=== PATIENT | male | born 1945 | race Caucasian/White ===

== ENCOUNTER 2024-04-08 14:54 | Inpatient (IN) | payer MEDICARE, SELFPAY ==
[2024-04-08] VITALS (14 sets, daily range): BP systolic 150–197; BP diastolic 75–136; PULSE 86–104; TEMP 36.7–36.9; O2SAT 90–96; BMI 23.0; BMI 22.7
--- NOTE | 2024-04-08 15:19 | ED_ITS ---
<Statement entered by Jesus Perez MD - 04/09/24 12:29> Chart was sent to my inbox for administrative and group management purposes. I was the attending physicians working during the patients hospital course. The patient was seen and managed independently by the MLP. I did not personally see or evaluate this patient, nor was I involved in the patient medical decision making process or plans of care. Pt was dispositioned by the MLP with complete independence. I was available for consultation should the MLP request during this patients ED stay. This documentation has been reviewed and approved. HPI HPI - General Adult General Chief complaint: Fall Stated complaint: GENERAL WEAKNESS Time Seen by Provider: 04/08/24 14:58 Source: patient Mode of arrival: walk-in Limitations: no limitations History of Present Illness HPI narrative: Patient is a 78-year-old male with history of Parkinson's, alcoholism who presents to the emergency department accompanied by mobile crisis representatives for evaluation of right-sided rib pain after a fall last night. Mobile crisis states that the patient recently got out of [facility] in [place] for alcohol detox, just before , and has been living out of a hotel that they set him up with. They provide him with food. He has issues with mental illness, bipolar disorder. He had a behavioral health appointment this morning but when he complained of rib pain from the fall last night, they brought him to this emergency department. Patient has been having an increase in falls. He states yesterday he was outside smoking a cigarette, he does not know why he fell. He is unsure of a loss of consciousness. He sustained an abrasion to the right denominational. He does have some neck pain. He reports most of his pain to the right lateral ribs. He also has associated bilateral hip and pelvis pain. He takes an aspirin daily with no other anticoagulation. He states he had 5 cups of coffee earlier today, but has not had anything to eat. He states he last had alcohol last night. He ambulates with a walker normally, he has been having difficulty ambulating even with a walker recently. Related Data Home Medications ?Medication ?Instructions ?Recorded ?Confirmed albuterol sulfate 90 mcg/actuation 1 inh inhalation Q4H PRN shortness 04/08/24 04/08/24 aerosol inhaler of breath or wheezing aspirin 81 mg chewable tablet 1 tab PO DAILY 04/08/24 04/08/24 atorvastatin 40 mg tablet 10 mg PO DAILY 04/08/24 04/08/24 escitalopram oxalate 20 mg tablet 20 mg PO DAILY 04/08/24 04/08/24 furosemide 40 mg tablet 40 mg PO DAILY 04/08/24 04/08/24 hydroxyzine HCl 25 mg tablet 25 mg PO DAILY PRN itching 04/08/24 04/08/24 lisinopril 10 mg tablet 10 mg PO DAILY 04/08/24 04/08/24 naproxen 500 mg tablet,delayed 500 mg PO Q12H 04/08/24 04/08/24 release (EC-Naprosyn) tizanidine 4 mg capsule 4 mg PO BID PRN muscle spasticity 04/08/24 04/08/24 trazodone 100 mg tablet 100 mg PO DAILY 04/08/24 04/08/24 Allergies Allergy/AdvReac Type Severity Reaction Status Date / Time doxycycline (From Vibramycin) AdvReac Severe Confusion Verified 04/08/24 15:35 methylprednisolone (From AdvReac Severe Confusion Verified 04/08/24 15:35 Medrol) oxycodone (From OxyContin) AdvReac Severe Confusion Verified 04/08/24 15:35 procaine (From Novocain) AdvReac Severe pass out Verified 04/08/24 15:35 nitroglycerin AdvReac Mild Rash Verified 04/08/24 15:35 Opioid HPI Opioid Management Most Recent Opioid Data: Ur Phencyclidine Scrn Negative (NEGATIVE) 04/08/24 17:15 12/01/22 Review of Systems ROS Constitutional Denies: fever or chills Ears, nose, mouth, and throat Denies: throat pain or nasal discharge Cardiovascular Denies: chest pain Respiratory Denies: shortness of breath or cough Gastrointestinal Denies: abdominal pain, nausea or vomiting Musculoskeletal Reports: neck pain and extremity pain; Denies: back pain Integumentary/Breast Denies: rash Neurological Denies: numbness in extremities or weakness in extremities Hematologic/Lymphatic Denies: easy bruising or easy bleeding [facility] Medical History (Updated 04/08/24 @ 19:24 by INDERJIT Atwood) CHF (congestive heart failure) ?I50.9 - Heart failure, unspecified (ICD-10) COPD (chronic obstructive pulmonary disease) ?J44.9 - Chronic obstructive pulmonary disease, unspecified (ICD-10) Chronic insomnia ?F51.04 - Psychophysiologic insomnia (ICD-10) Anxiety ?F41.9 - Anxiety disorder, unspecified (ICD-10) Recurrent depression ?F33.9 - Major depressive disorder, recurrent, unspecified (ICD-10) Chronic bipolar disorder ?F31.9 - Bipolar disorder, unspecified (ICD-10) Social History Little interest or pleasure in doing things: not at all Feeling down, depressed, or hopeless: not at all Exam Narrative Exam Narrative: Gen.: Awake, alert, in no distress Head: Normocephalic, abrasion noted to the right denominational ENT: Moist mucous membranes Respiratory: No respiratory distress, lungs clear bilaterally; diffuse tenderness of the right lateral chest wall, no crepitance or ecchymosis Cardio: Regular rate and rhythm Gastrointestinal: Abdomen is soft, nondistended and nontender to palpation, diffuse tenderness of the bilateral hips and pelvis Extremities: Minimal tenderness of the bilateral lower extremities with no bony tenderness or obvious deformity Psych: Normal mood and affect Neuro: No focal neuro deficit Skin: Warm, dry, intact Constitutional Vital Signs, click to edit/add: Last Vital Signs Temp 98.1 F 04/08/24 15:00 Pulse 91 H 04/08/24 16:10 Resp 16 04/08/24 16:10 BP 159/90 H 04/08/24 16:00 Pulse Ox 93 L 04/08/24 16:10 O2 Del Method Room Air 04/08/24 15:00 Course Vital Signs Vital signs: Vital Signs Temperature 98.1 F 04/08/24 15:00 Pulse Rate 104 H 04/08/24 15:00 Respiratory Rate 18 04/08/24 15:00 Blood Pressure 188/88 H 04/08/24 15:00 Pulse Oximetry 96 04/08/24 15:00 Oxygen Delivery Method Room Air 04/08/24 15:00 Temperature 98.1 F 04/08/24 15:00 Pulse Rate 91 H 04/08/24 16:10 Respiratory Rate 16 04/08/24 16:10 Blood Pressure 159/90 H 04/08/24 16:00 Pulse Oximetry 93 L 04/08/24 16:10 Oxygen Delivery Method Room Air 04/08/24 15:00 Medical Decision Making MDM Narrative Medical decision making narrative: Patient was treated with gentle IV fluids, [place] given for rib pain. Discussed the case with social problems specialist, they can see the patient tomorrow. CT of the head, C-spine, chest/abdomen/pelvis shows chronic changes with no acute traumatic abnormalities. Lactic acid was initially elevated with ketones on the patient's urine and elevated BUN. Patient will be admitted for observation for mild dehydration, generalized weakness and frequent falls in addition to rib pain from chest wall contusion. He is stable at time of admission for observation, I did make the patient and mobile crisis caregivers at the bedside aware that the patient may not qualify for 3-day stay or penitentiary placement and they are aware of this. He is eating at time of admission. SUPERVISED APC VISIT, PHYSICIAN ATTESTATION: Based on the medical record the care appears appropriate. ? Medical Records Medical records reviewed: Yes I reviewed the patient's medical records Lab Data Lab results reviewed: Yes I reviewed the patient's lab results Labs: Lab Results 04/08/24 04/08/24 04/08/24 Range/Units 15:20 15:41 17:15 WBC 9.5 (4.0-11.0) 10^3/uL RBC 4.05 L (4.70-6.10) 10^6/uL Hgb 12.7 L (14.0-18.0) g/dL Hct 37.7 L (42.0-54.0) % MCV 93.1 (80.0-94.0) fL MCH 31.4 (25.9-34.0) pg MCHC 33.7 (29.9-35.2) g/dL RDW 14.9 (11.0-15.0) % Plt Count 209 (150-450) 10^3/uL MPV 9.6 (9.5-13.5) fL Neut % (Auto) 74.8 (43.0-75.0) % Lymph % (Auto) 14.5 L (20.5-60.0) % Burke % (Auto) 8.8 (1.7-12.0) % Eos % (Auto) 0.5 L (0.9-7.0) % Baso % (Auto) 0.7 (0.2-2.0) % Neut # (Auto) 7.1 H (1.4-6.5) 10^3/uL Lymph # (Auto) 1.4 (1.2-3.8) 10^3/uL Burke # (Auto) 0.8 (0.3-0.8) 10^3/uL Eos # (Auto) 0.1 (0.0-0.7) 10^3/uL Baso # (Auto) 0.1 (0.0-0.1) 10^3/uL Abs Immat Gran (auto) 0.07 H (0.00-0.03) 10^3/uL Imm/Tot Granulo (auto) 0.7 H (0.0-0.5) % PT 10.3 (9.0-11.6) sec INR 0.97 Sodium 141 (136-145) mmol/L Potassium 4.2 (3.5-5.1) mmol/L Chloride 103 (98-107) mmol/L Carbon Dioxide 27.7 (21.0-32.0) mmol/L Anion Gap 14.5 BUN 21.0 H (7.0-18.0) mg/dL Creatinine 1.07 (0.70-1.30) mg/dL Est GFR ( Amer) >60 (>=60 mL/min/1.73m^2) Est GFR (Non-Af Amer) >60 (>=60 mL/min/1.73m^2) BUN/Creatinine Ratio 19.6 Glucose 83 (74-106) mg/dL Lactate 2.6 H* (0.4-2.0) mmol/L Calcium 8.8 (8.5-10.1) mg/dL Magnesium 2.2 (1.8-2.4) mg/dL Total Bilirubin 0.9 (0.2-1.0) mg/dL AST 33 (15-37) U/L ALT 17 (16-63) U/L Alkaline Phosphatase 68 (46-116) U/L Troponin I High Sens 37.3 (4.0-76.1) pg/mL Total Protein 6.8 (6.4-8.2) g/dL Albumin 3.2 L (3.4-5.0) g/dL Globulin 3.6 g/dL Albumin/Globulin Ratio 0.9 TSH 2.841 (0.358-3.740) uIU/mL Urine Color Lt. yellow (YELLOW) Urine Clarity Clear (CLEAR) Urine pH 6.0 (5.0-9.0) Ur Specific Laurel 1.020 (1.005-1.025) Urine Protein Negative (NEG/TRACE) mg/dL Urine Glucose (UA) Negative (NEGATIVE) mg/dL Urine Ketones 15 A (NEGATIVE) mg/dL Urine Occult Blood Moderate A (NEGATIVE) Urine Nitrite Negative (NEGATIVE) Urine Bilirubin Negative (NEGATIVE) Urine Urobilinogen 1.0 (0.2-1.0) EU/dL Ur Leukocyte Esterase Negative (NEGATIVE) Urine RBC 5-10 A (0-2) #/HPF Urine WBC None seen (NONE SEEN) #/HPF Ur Squamous Epith Cells Rare (NONE/RARE) #/LPF Urine Crystals None seen (None Seen) #/HPF Urine Bacteria Trace A (NONE SEEN) #/HPF Urine Casts None seen (NONE SEEN) #/LPF Urine Mucus None seen (NONE SEEN) Ur Culture Indicated? No Urine Opiates Screen Negative (NEGATIVE) Ur Buprenorphine Scrn Negative (NEGATIVE) Ur Oxycodone Screen Negative (NEGATIVE) Urine Methadone Screen Negative (NEGATIVE) Ur Barbiturates Screen Negative (NEGATIVE) U Tricyclic Antidepress Negative (NEGATIVE) Ur Phencyclidine Scrn Negative (NEGATIVE) Ur Amphetamines Screen Negative (NEGATIVE) U Methamphetamines Scrn Negative (NEGATIVE) U Benzodiazepines Scrn Negative (NEGATIVE) Urine Cocaine Screen Negative (NEGATIVE) U Cannabinoids Screen Negative (NEGATIVE) Ethanol Quant <3 mg/dL 04/08/24 Range/Units 18:25 WBC (4.0-11.0) 10^3/uL RBC (4.70-6.10) 10^6/uL Hgb (14.0-18.0) g/dL Hct (42.0-54.0) % MCV (80.0-94.0) fL MCH (25.9-34.0) pg MCHC (29.9-35.2) g/dL RDW (11.0-15.0) % Plt Count (150-450) 10^3/uL MPV (9.5-13.5) fL Neut % (Auto) (43.0-75.0) % Lymph % (Auto) (20.5-60.0) % Burke % (Auto) (1.7-12.0) % Eos % (Auto) (0.9-7.0) % Baso % (Auto) (0.2-2.0) % Neut # (Auto) (1.4-6.5) 10^3/uL Lymph # (Auto) (1.2-3.8) 10^3/uL Burke # (Auto) (0.3-0.8) 10^3/uL Eos # (Auto) (0.0-0.7) 10^3/uL Baso # (Auto) (0.0-0.1) 10^3/uL Abs Immat Gran (auto) (0.00-0.03) 10^3/uL Imm/Tot Granulo (auto) (0.0-0.5) % PT (9.0-11.6) sec INR Sodium (136-145) mmol/L Potassium (3.5-5.1) mmol/L Chloride (98-107) mmol/L Carbon Dioxide (21.0-32.0) mmol/L Anion Gap BUN (7.0-18.0) mg/dL Creatinine (0.70-1.30) mg/dL Est GFR ( Amer) (>=60 mL/min/1.73m^2) Est GFR (Non-Af Amer) (>=60 mL/min/1.73m^2) BUN/Creatinine Ratio Glucose (74-106) mg/dL Lactate 0.9 (0.4-2.0) mmol/L Calcium (8.5-10.1) mg/dL Magnesium (1.8-2.4) mg/dL Total Bilirubin (0.2-1.0) mg/dL AST (15-37) U/L ALT (16-63) U/L Alkaline Phosphatase (46-116) U/L Troponin I High Sens (4.0-76.1) pg/mL Total Protein (6.4-8.2) g/dL Albumin (3.4-5.0) g/dL Globulin g/dL Albumin/Globulin Ratio TSH (0.358-3.740) uIU/mL Urine Color (YELLOW) Urine Clarity (CLEAR) Urine pH (5.0-9.0) Ur Specific Laurel (1.005-1.025) Urine Protein (NEG/TRACE) mg/dL Urine Glucose (UA) (NEGATIVE) mg/dL Urine Ketones (NEGATIVE) mg/dL Urine Occult Blood (NEGATIVE) Urine Nitrite (NEGATIVE) Urine Bilirubin (NEGATIVE) Urine Urobilinogen (0.2-1.0) EU/dL Ur Leukocyte Esterase (NEGATIVE) Urine RBC (0-2) #/HPF Urine WBC (NONE SEEN) #/HPF Ur Squamous Epith Cells (NONE/RARE) #/LPF Urine Crystals (None Seen) #/HPF Urine Bacteria (NONE SEEN) #/HPF Urine Casts (NONE SEEN) #/LPF Urine Mucus (NONE SEEN) Ur Culture Indicated? Urine Opiates Screen (NEGATIVE) Ur Buprenorphine Scrn (NEGATIVE) Ur Oxycodone Screen (NEGATIVE) Urine Methadone Screen (NEGATIVE) Ur Barbiturates Screen (NEGATIVE) U Tricyclic Antidepress (NEGATIVE) Ur Phencyclidine Scrn (NEGATIVE) Ur Amphetamines Screen (NEGATIVE) U Methamphetamines Scrn (NEGATIVE) U Benzodiazepines Scrn (NEGATIVE) Urine Cocaine Screen (NEGATIVE) U Cannabinoids Screen (NEGATIVE) Ethanol Quant mg/dL Imaging Data CT scan - head: Attestation: I have reviewed the pertinent imaging results. Radiologist's impression: ITS Impressions Abdomen/Pelvis CT 04/08/24 15:19 IMPRESSION: CHEST: 1. No acute traumatic injury. 2. 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 This can be idiopathic or associated with other etiologies such as connective tissue disorders, asbestosis, fibrotic hypersensitivity pneumonitis, prior radiation therapy and amiodarone toxicity. If the clinical setting is equivocal for IPF, lung biopsy and further review in a multidisciplinary meeting is recommended. Minimal emphysematous changes are also seen. 3. Esophageal wall thickening suspicious for esophagitis. 4. Atherosclerotic coronary artery and aortic calcification, status-post CABG. There is ulcerated plaque in the descending thoracic aorta which is mildly ectatic. ABDOMEN/PELVIS: 1. No acute process. 2. Moderate hiatal hernia. 3. Extensive atherosclerotic calcification as described above. Underlying moderate to severe stenoses of the superior mesenteric and bilateral common femoral arteries cannot be excluded. Follow up CT angiography may be considered. 4. Nonspecific gallbladder distention. If the patient has right upper quadrant pain, ultrasound would be recommended. 5. Colonic diverticulosis. Electronically authenticated by: SUYAPA ACEVES Date: 04/08/2024 18:[address] 04/08/24 15:19 IMPRESSION: 1. No acute fracture or subluxation. 2. Degenerative changes as described in the body of the report. 3. Reversal of the normal cervical lordosis consistent with muscle strain, spasm or positioning. 4. Mild likely chronic loss of height at T1. 5. Moderate atherosclerotic carotid artery calcification. Electronically authenticated by: SUYAPA ACEVES Date: 04/08/2024 18:[address] 04/08/24 15:19 IMPRESSION: CHEST: 1. No acute traumatic injury. 2. 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 This can be idiopathic or associated with other etiologies such as connective tissue disorders, asbestosis, fibrotic hypersensitivity pneumonitis, prior radiation therapy and amiodarone toxicity. If the clinical setting is equivocal for IPF, lung biopsy and further review in a multidisciplinary meeting is recommended. Minimal emphysematous changes are also seen. 3. Esophageal wall thickening suspicious for esophagitis. 4. Atherosclerotic coronary artery and aortic calcification, status-post CABG. There is ulcerated plaque in the descending thoracic aorta which is mildly ectatic. ABDOMEN/PELVIS: 1. No acute process. 2. Moderate hiatal hernia. 3. Extensive atherosclerotic calcification as described above. Underlying moderate to severe stenoses of the superior mesenteric and bilateral common femoral arteries cannot be excluded. Follow up CT angiography may be considered. 4. Nonspecific gallbladder distention. If the patient has right upper quadrant pain, ultrasound would be recommended. 5. Colonic diverticulosis. Electronically authenticated by: SUYAPA ACEVES Date: 04/08/2024 18:[address] 04/08/24 15:19 IMPRESSION: 1. No acute intracranial abnormality. 2. Atrophy, atherosclerotic calcification, chronic microvascular ischemia and probable small chronic lacunar infarct in the right cerebellum. Electronically authenticated by: SUYAPA ACEVES Date: 04/08/2024 18:11 ECG Data Attestation: I personally reviewed and interpreted this ECG as follows: (Normal sinus rhythm at a rate of 95 with occasional PVCs. Right bundle branch block. No acute ST elevation. EKG reviewed by attending physician) Discharge Plan Discharge Chief Complaint: Fall Clinical Impression: Weakness, Frequent falls, Dehydration, Chest wall contusion Patient Disposition: Admitted as Observation Time of Disposition Decision: 19:23 Prescriptions / Home Meds: No Action atorvastatin 40 mg tablet 10 mg PO DAILY trazodone 100 mg tablet 100 mg PO DAILY aspirin 81 mg tablet,chewable 1 tab PO DAILY escitalopram oxalate 20 mg tablet 20 mg PO DAILY furosemide 40 mg tablet 40 mg PO DAILY naproxen [EC-Naprosyn] 500 mg tablet,delayed release (DR/EC) 500 mg PO Q12H lisinopril 10 mg tablet 10 mg PO DAILY tizanidine 4 mg capsule 4 mg PO BID PRN (Reason: muscle spasticity) albuterol sulfate 90 mcg/actuation HFA aerosol inhaler 1 inh inhalation Q4H PRN (Reason: shortness of breath or wheezing) hydroxyzine HCl 25 mg tablet 25 mg PO DAILY PRN (Reason: itching) Print Language: Spanish Referrals: Physician,Non-Staff, MD [Primary Care Provider] - 1 week
--- NOTE | 2024-04-08 15:19 | CT_ITS ---
The [address] [address] Patient Name: LEONIDAS MILLER MRN: [id number] date: 1945 Sex: M Assigned Patient Location: ER Current Patient Location: ER Accession/Order Number: [id number] Exam Date: 04/08/2024 16:24 Report Date: 04/08/2024 18:41 At the request of: BARI RIVAS Procedure: CT abdomen pelvis w con CT CHEST ABDOMEN AND PELVIS WITH CONTRAST: INDICATION: Fall, right rib pain. COMPARISON: Chest CT 12/14/2012, CT abdomen 01/22/2010 from [facility]. TECHNIQUE: Helical CT images were obtained of the chest, abdomen and pelvis after the administration of intravenous contrast. Dose reduction techniques were achieved by using automated exposure control and/or adjustment of mA and/or kV according to patient size and/or use of iterative reconstruction technique. Dose reduction techniques were achieved by using automated exposure control and/or adjustment of mA and/or kV according to patient size and/or use of iterative reconstruction technique. FINDINGS: CHEST: VASCULATURE: Diffuse atherosclerotic calcification of the thoracic aorta. There is prominent ulcerated plaque in the descending thoracic aorta which is somewhat ectatic measuring 3.6 cm in diameter. HEART/PERICARDIUM: Severe coronary artery calcification. Postsurgical changes consistent with CABG. MEDIASTINAL/HILAR LYMPH NODES: No lymphadenopathy. ESOPHAGUS: Possible mild diffuse wall thickening especially proximally suggestive of esophagitis. PLEURAL CAVITY: No pleural effusion or pneumothorax. LUNGS/AIRWAYS: Mild bilateral bronchial wall thickening consistent with bronchitis. Mild emphysematous changes with several subpleural blebs especially at the apices. There is a prominent probable emphysematous bulla in the right lower lobe. There are peripheral and basilar predominant reticular and groundglass opacities with traction bronchiectasis consistent with interstitial lung disease and fibrosis. This is new compared to the CT from 12/14/2012 where there were groundglass opacities noted diffusely. There may be mild early honeycomb formation noted especially in the right upper lobe. BONES: There are a few remote right rib fractures. There is no definite acute osseous abnormality. CHEST WALL/AXILLA/LOWER NECK: Normal. ABDOMEN AND PELVIS: LIVER: There are a few small hypodensities suggestive of cysts measuring up to 5 mm in the left hepatic lobe, however these are too small to definitely characterize. At least two of these lesions are seen on a CT from 01/22/2010. GALLBLADDER AND BILIARY SYSTEM: Mildly distended measuring 9.2 x 3.4 cm with no definite gallstones visualized. SPLEEN: Normal. PANCREAS: Normal. ADRENAL GLANDS: Normal. KIDNEYS AND URETERS: Small hypodensity in the right kidney suggestive of a cyst but too small to characterize. VASCULATURE: Severe diffuse atherosclerotic calcification throughout the aorta, iliac, femoral arteries and the branch vessels. There is extensive calcification in the origin of the superior mesenteric artery which limits visualization of the lumen. An underlying moderate to severe stenosis cannot be excluded. There is a stent within the right external iliac artery. Severe calcification within the bilateral common femoral arteries also limits visualization of the lumen. RETROPERITONEUM AND LYMPH NODES: Normal, with no lymphadenopathy. GASTROINTESTINAL TRACT/MESENTERY: Moderate hiatal hernia. Multiple diverticula in the sigmoid colon with no acute diverticulitis. Normal mesentery/peritoneum. Normal appendix. BLADDER: Normal. REPRODUCTIVE SYSTEM: Normal prostate. BODY WALL: Normal. BONES: No acute osseous abnormality. Mild to moderate multilevel degenerative changes of the lumbar spine. CT/CT abdomen pelvis w con IMPRESSION: CHEST: 1. No acute traumatic injury. 2. 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 This can be idiopathic or associated with other etiologies such as connective tissue disorders, asbestosis, fibrotic hypersensitivity pneumonitis, prior radiation therapy and amiodarone toxicity. If the clinical setting is equivocal for IPF, lung biopsy and further review in a multidisciplinary meeting is recommended. Minimal emphysematous changes are also seen. 3. Esophageal wall thickening suspicious for esophagitis. 4. Atherosclerotic coronary artery and aortic calcification, status-post CABG. There is ulcerated plaque in the descending thoracic aorta which is mildly ectatic. ABDOMEN/PELVIS: 1. No acute process. 2. Moderate hiatal hernia. 3. Extensive atherosclerotic calcification as described above. Underlying moderate to severe stenoses of the superior mesenteric and bilateral common femoral arteries cannot be excluded. Follow up CT angiography may be considered. 4. Nonspecific gallbladder distention. If the patient has right upper quadrant pain, ultrasound would be recommended. 5. Colonic diverticulosis. Electronically authenticated by: SUYAPA ACEVES Date: 04/08/2024 18:41
--- NOTE | 2024-04-08 15:19 | CT_ITS ---
The [address] [address] Patient Name: LEONIDAS MILLER MRN: [id number] date: 1945 Sex: M Assigned Patient Location: ER Current Patient Location: ER Accession/Order Number: [id number] Exam Date: 04/08/2024 16:24 Report Date: 04/08/2024 18:11 At the request of: BARI RIVAS Procedure: CT head/brain wo con EXAMINATION: CT head/brain wo con, 04/08/2024 4:24 PM EST HISTORY: fall COMPARISON: None. TECHNIQUE: CT scan of the head was performed without IV contrast. CT dose reduction technique was used, including Automated Exposure Control. FINDINGS: BRAIN PARENCHYMA/CSF SPACES: Moderately enlarged ventricles and sulci consistent with atrophy. There is a partially empty sella. There is no intracranial hemorrhage, mass effect or midline shift. There is moderate atherosclerotic calcification in the bilateral carotid arteries. There is moderate low-attenuation throughout the white matter consistent with chronic microvascular ischemia. There is a probable tiny chronic lacunar infarct in the right cerebellum. PARANASAL SINUSES: Clear. SKULL BASE AND CALVARIUM: Normal. EXTRACRANIAL SOFT TISSUES: Normal. CT/CT head/brain wo con IMPRESSION: 1. No acute intracranial abnormality. 2. Atrophy, atherosclerotic calcification, chronic microvascular ischemia and probable small chronic lacunar infarct in the right cerebellum. Electronically authenticated by: SUYAPA ACEVES Date: 04/08/2024 18:11
--- NOTE | 2024-04-08 15:19 | CT_ITS ---
The [address] [address] Patient Name: LEONIDAS MILLER MRN: [id number] date: 1945 Sex: M Assigned Patient Location: ER Current Patient Location: ER Accession/Order Number: [id number] Exam Date: 04/08/2024 16:24 Report Date: 04/08/2024 18:41 At the request of: BARI RIVAS Procedure: CT chest w con CT CHEST ABDOMEN AND PELVIS WITH CONTRAST: INDICATION: Fall, right rib pain. COMPARISON: Chest CT 12/14/2012, CT abdomen 01/22/2010 from [facility]. TECHNIQUE: Helical CT images were obtained of the chest, abdomen and pelvis after the administration of intravenous contrast. Dose reduction techniques were achieved by using automated exposure control and/or adjustment of mA and/or kV according to patient size and/or use of iterative reconstruction technique. Dose reduction techniques were achieved by using automated exposure control and/or adjustment of mA and/or kV according to patient size and/or use of iterative reconstruction technique. FINDINGS: CHEST: VASCULATURE: Diffuse atherosclerotic calcification of the thoracic aorta. There is prominent ulcerated plaque in the descending thoracic aorta which is somewhat ectatic measuring 3.6 cm in diameter. HEART/PERICARDIUM: Severe coronary artery calcification. Postsurgical changes consistent with CABG. MEDIASTINAL/HILAR LYMPH NODES: No lymphadenopathy. ESOPHAGUS: Possible mild diffuse wall thickening especially proximally suggestive of esophagitis. PLEURAL CAVITY: No pleural effusion or pneumothorax. LUNGS/AIRWAYS: Mild bilateral bronchial wall thickening consistent with bronchitis. Mild emphysematous changes with several subpleural blebs especially at the apices. There is a prominent probable emphysematous bulla in the right lower lobe. There are peripheral and basilar predominant reticular and groundglass opacities with traction bronchiectasis consistent with interstitial lung disease and fibrosis. This is new compared to the CT from 12/14/2012 where there were groundglass opacities noted diffusely. There may be mild early honeycomb formation noted especially in the right upper lobe. BONES: There are a few remote right rib fractures. There is no definite acute osseous abnormality. CHEST WALL/AXILLA/LOWER NECK: Normal. ABDOMEN AND PELVIS: LIVER: There are a few small hypodensities suggestive of cysts measuring up to 5 mm in the left hepatic lobe, however these are too small to definitely characterize. At least two of these lesions are seen on a CT from 01/22/2010. GALLBLADDER AND BILIARY SYSTEM: Mildly distended measuring 9.2 x 3.4 cm with no definite gallstones visualized. SPLEEN: Normal. PANCREAS: Normal. ADRENAL GLANDS: Normal. KIDNEYS AND URETERS: Small hypodensity in the right kidney suggestive of a cyst but too small to characterize. VASCULATURE: Severe diffuse atherosclerotic calcification throughout the aorta, iliac, femoral arteries and the branch vessels. There is extensive calcification in the origin of the superior mesenteric artery which limits visualization of the lumen. An underlying moderate to severe stenosis cannot be excluded. There is a stent within the right external iliac artery. Severe calcification within the bilateral common femoral arteries also limits visualization of the lumen. RETROPERITONEUM AND LYMPH NODES: Normal, with no lymphadenopathy. GASTROINTESTINAL TRACT/MESENTERY: Moderate hiatal hernia. Multiple diverticula in the sigmoid colon with no acute diverticulitis. Normal mesentery/peritoneum. Normal appendix. BLADDER: Normal. REPRODUCTIVE SYSTEM: Normal prostate. BODY WALL: Normal. BONES: No acute osseous abnormality. Mild to moderate multilevel degenerative changes of the lumbar spine. CT/CT chest w con IMPRESSION: CHEST: 1. No acute traumatic injury. 2. 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 This can be idiopathic or associated with other etiologies such as connective tissue disorders, asbestosis, fibrotic hypersensitivity pneumonitis, prior radiation therapy and amiodarone toxicity. If the clinical setting is equivocal for IPF, lung biopsy and further review in a multidisciplinary meeting is recommended. Minimal emphysematous changes are also seen. 3. Esophageal wall thickening suspicious for esophagitis. 4. Atherosclerotic coronary artery and aortic calcification, status-post CABG. There is ulcerated plaque in the descending thoracic aorta which is mildly ectatic. ABDOMEN/PELVIS: 1. No acute process. 2. Moderate hiatal hernia. 3. Extensive atherosclerotic calcification as described above. Underlying moderate to severe stenoses of the superior mesenteric and bilateral common femoral arteries cannot be excluded. Follow up CT angiography may be considered. 4. Nonspecific gallbladder distention. If the patient has right upper quadrant pain, ultrasound would be recommended. 5. Colonic diverticulosis. Electronically authenticated by: SUYAPA ACEVES Date: 04/08/2024 18:41
--- NOTE | 2024-04-08 15:19 | CT_ITS ---
[address] [address] Patient Name: LEONIDAS MILLER MRN: [id number] date: 1945 Sex: M Assigned Patient Location: ER Current Patient Location: ER Accession/Order Number: [id number] Exam Date: 04/08/2024 16:24 Report Date: 04/08/2024 18:11 At the request of: BARI RIVAS Procedure: CT cervical spine wo con CT CERVICAL SPINE WITHOUT CONTRAST HISTORY: fall. COMPARISON: None available. TECHNIQUE: Helical CT images were performed of the cervical spine without intravenous contrast. Dose reduction techniques were achieved by using automated exposure control and/or adjustment of mA and/or kV according to patient size and/or use of iterative reconstruction technique. FINDINGS: TONGUE CARRIER RADIOGRAPH: Unremarkable. MINERALIZATION: Moderate osteopenia. CRANIOCERVICAL AND ATLANTOAXIAL ARTICULATIONS: Intact with no traumatic subluxation. VERTEBRAL BODIES: Normal in height in the cervical spine with no acute compression fracture. Mild chronic appearing loss of height at T1. DISC SPACES: Moderate to severe disc space narrowing throughout cervical spine with osteophytic spurring and vacuum phenomenon consistent with degenerative changes. ALIGNMENT: Reversal of the normal cervical lordosis. Grade 1 anterolisthesis at C7-T1, likely degenerative in nature. POSTERIOR ELEMENTS: Intact. ODONTOID PROCESS: Intact. VISUALIZED SKULL BASE: Unremarkable. SPINAL CANAL/NEURAL FORAMEN: There are multiple posterior disc osteophyte complexes throughout cervical spine with mild canal stenosis at several levels. There is moderate canal stenosis at C6-C7. There is moderate to severe multilevel bilateral neural foraminal stenosis due to facet and uncovertebral hypertrophy. UPPER THORAX: Unremarkable. SOFT TISSUES OF THE NECK: Moderate atherosclerotic carotid artery calcification. CT/CT cervical spine wo con IMPRESSION: 1. No acute fracture or subluxation. 2. Degenerative changes as described in the body of the report. 3. Reversal of the normal cervical lordosis consistent with muscle strain, spasm or positioning. 4. Mild likely chronic loss of height at T1. 5. Moderate atherosclerotic carotid artery calcification. Electronically authenticated by: SUYAPA ACEVES Date: 04/08/2024 18:11
--- NOTE | 2024-04-08 15:19 | ECG_ITS ---
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
[2024-04-08 15:51] LABS: Basophils Absolute Auto 0.1 10^3/uL (0.0-0.1); Basophils Percent Auto 0.7 % (0.2-2.0); Eosinophils Absolute Auto 0.1 10^3/uL (0.0-0.7); Eosinophils Percent Auto 0.5 % (0.9-7.0); Hematocrit 37.7 % (42.0-54.0); Hemoglobin 12.7 g/dL (14.0-18.0); Immature Granulocytes Abs Auto 0.07 10^3/uL (0.00-0.03); Immature Granulocytes Pct Auto 0.7 % (0.0-0.5); Lymphocytes Absolute Auto 1.4 10^3/uL (1.2-3.8); Lymphocytes Percent Auto 14.5 % (20.5-60.0); Mean Corpuscular HGB Conc 33.7 g/dL (29.9-35.2); Mean Corpuscular Hemoglobin 31.4 pg (25.9-34.0); Mean Corpuscular Volume 93.1 fL (80.0-94.0); Mean Platelet Volume 9.6 fL (9.5-13.5); Monocytes Absolute Auto 0.8 10^3/uL (0.3-0.8); Monocytes Percent Auto 8.8 % (1.7-12.0); Neutrophils Absolute Auto 7.1 10^3/uL (1.4-6.5); Neutrophils Percent Auto 74.8 % (43.0-75.0); Platelet Count 209 10^3/uL (150-450); Red Blood Count 4.05 10^6/uL (4.70-6.10); Red Cell Distribution Width 14.9 % (11.0-15.0); White Blood Count 9.5 10^3/uL (4.0-11.0)
[2024-04-08 15:55] LABS: Lactate/Lactic Acid 2.6 mmol/L (0.4-2.0)
[2024-04-08 16:01] LABS: INR 0.97; Prothrombin Time 10.3 sec (9.0-11.6)
[2024-04-08 16:03] LABS: Alanine Aminotransferase 17 U/L (16-63); Albumin Globulin Ratio 0.9; Albumin Level 3.2 g/dL (3.4-5.0); Alkaline Phosphatase 68 U/L (46-116); Anion Gap 14.5; Aspartate Amino Transferase 33 U/L (15-37); BUN Creatinine Ratio 19.6; Bilirubin Total 0.9 mg/dL (0.2-1.0); Calcium 8.8 mg/dL (8.5-10.1); Carbon Dioxide 27.7 mmol/L (21.0-32.0); Chloride 103 mmol/L (98-107); Estimated GFR (African America >60 (>=60 mL/min/1.73m^2); Estimated GFR (Non-African Ame >60 (>=60 mL/min/1.73m^2); Globulin 3.6 g/dL; Glucose 83 mg/dL (74-106); Potassium 4.2 mmol/L (3.5-5.1); Sodium 141 mmol/L (136-145); Total Protein 6.8 g/dL (6.4-8.2)
[2024-04-08] MEDS: HYDROCODONE/ACET 5-325 MG TABLET 1 TAB PO (16:06)
[2024-04-08] MEDS: BACITRACIN 0.9 GM PACKET 1 PACKET TOPICAL (16:07)
[2024-04-08] MEDS: ADACEL DIPH,PERTUSS(ACELL),TET VAC/PF 0.5 ML ADULT SYRINGE IM (16:07)
[2024-04-08] MEDS: 0.9 % SODIUM CHLORIDE 1,000 ML 100 ML IV ×2 (16:07→21:54)
[2024-04-08 16:11] LABS: Ethanol <3 mg/dL; Magnesium 2.2 mg/dL (1.8-2.4); Thyroid Stimulating Hormone 2.841 uIU/mL (0.358-3.740); Troponin I High Sensitivity 37.3 pg/mL (4.0-76.1)
[2024-04-08 17:32] LABS: Bilirubin Urine NEGATIVE (NEGATIVE); Blood Urine MODERATE (NEGATIVE); Clarity Urine CLEAR (CLEAR); Color Urine LT. YELLOW (YELLOW); Glucose Urine UA NEGATIVE (NEGATIVE); Ketones Urine 15 mg/dL (NEGATIVE); Leukocyte Esterase Urine NEGATIVE (NEGATIVE); Nitrite Urine NEGATIVE (NEGATIVE); Protein Urine NEGATIVE (NEG/TRACE)
[2024-04-08 17:34] LABS: Urine Microscopic Indicated YES
[2024-04-08 17:40] LABS: Amphetamine Screen Urine NEGATIVE (NEGATIVE); Barbiturates Screen Urine NEGATIVE (NEGATIVE); Benzodiazepines Screen Urine NEGATIVE (NEGATIVE); Buprenorphine Screen Urine NEGATIVE (NEGATIVE); Cannabinoid Screen Urine NEGATIVE (NEGATIVE); Cocaine Screen Urine NEGATIVE (NEGATIVE); Methadone Screen Urine NEGATIVE (NEGATIVE); Methamphetamines Screen Urine NEGATIVE (NEGATIVE); Opiate Screen Urine NEGATIVE (NEGATIVE); Oxycodone Screen Urine NEGATIVE (NEGATIVE); Phencyclidine Screen Urine NEGATIVE (NEGATIVE); Tricyclic Antidepressant Urine NEGATIVE (NEGATIVE)
[2024-04-08 17:46] LABS: Bacteria Urine TRACE #/HPF (NONE SEEN); Cast Seen? NONE SEEN #/LPF (NONE SEEN); Crystals Seen? None Seen #/HPF (None Seen); Mucus Urine NONE SEEN (NONE SEEN); Squamous Epithelial Cell Urine RARE #/LPF (NONE/RARE); Urine Culture Indicated NO; WBC Urine NONE SEEN #/HPF (NONE SEEN)
[2024-04-08 18:49] LABS: Lactate/Lactic Acid 0.9 mmol/L (0.4-2.0)
[2024-04-08] MEDS: NAPROXEN 250 MG TABLET 500 MG PO (21:45)
[2024-04-08] MEDS: TRAZODONE HCL 50 MG TABLET 100 MG PO (21:45)
[2024-04-09] VITALS (9 sets, daily range): BP systolic 122–167; BP diastolic 61–81; PULSE 68–94; TEMP 36.4–36.8; O2SAT 91–98; BMI 22.7
[2024-04-09] MEDS: ACETAMINOPHEN 325 MG TABLET 650 MG PO (05:35)
[2024-04-09] MEDS: TIZANIDINE HCL 4 MG TABLET PO (05:35)
[2024-04-09 05:56] LABS: Hematocrit 34.3 % (42.0-54.0); Hemoglobin 11.8 g/dL (14.0-18.0); Mean Corpuscular HGB Conc 34.4 g/dL (29.9-35.2); Mean Corpuscular Hemoglobin 33.1 pg (25.9-34.0); Mean Corpuscular Volume 96.1 fL (80.0-94.0); Mean Platelet Volume 9.9 fL (9.5-13.5); Platelet Count 161 10^3/uL (150-450); Red Blood Count 3.57 10^6/uL (4.70-6.10); Red Cell Distribution Width 14.9 % (11.0-15.0); White Blood Count 6.5 10^3/uL (4.0-11.0)
[2024-04-09 06:06] LABS: Anion Gap 10.8; BUN Creatinine Ratio 17.2; Calcium 7.8 mg/dL (8.5-10.1); Carbon Dioxide 28.9 mmol/L (21.0-32.0); Chloride 105 mmol/L (98-107); Estimated GFR (African America >60 (>=60 mL/min/1.73m^2); Estimated GFR (Non-African Ame >60 (>=60 mL/min/1.73m^2); Glucose 79 mg/dL (74-106); Potassium 3.7 mmol/L (3.5-5.1); Sodium 141 mmol/L (136-145)
[2024-04-09] MEDS: PANTOPRAZOLE SODIUM 40 MG VIAL IV (07:25)
[2024-04-09] MEDS: 0.9 % SODIUM CHLORIDE 1,000 ML 100 ML IV ×2 (07:25→16:59)
--- NOTE | 2024-04-09 09:17 | P.HP_ITS ---
HPI H&P: HPI History of Present Illness Chief complaint: GENERAL WEAKNESS Dehydration chest wall contusion Narrative: Patient present to the emergency room status post fall, found to have significant tachycardia respiratory distress uncontrolled hypertension, chest wall pain, cough with productive sputum When I saw patient up in the medical surgical floor, in bed, not resting very comfortably secondary to pain, cough throughout the evaluation dyspnea with conversation Opioid HPI Opioid Management Most Recent Pain and Opioid Data: Last Pain Scale 5 04/09/24 07:29 04/09/24 Last Pain Assessment 04/09/24 08:56 Last MAR Pain Assessment 04/09/24 06:42 Last ORT Total Score 6 04/08/24 20:21 04/08/24 Last ORT Risk Category Moderate Risk 04/08/24 20:21 04/08/24 Ur Phencyclidine Scrn Negative (NEGATIVE) 04/08/24 17:15 01/22 Review of Systems ROS Status of ROS 10 or more systems reviewed and unremark able except as noted in history and below PFSH PFSH Medical History (Updated 04/09/24 @ 09:56 by Selwyn Jiménez MD) HTN (hypertension) ?I10 - Essential (primary) hypertension (ICD-10) Bipolar 1 disorder ?F31.9 - Bipolar disorder, unspecified (ICD-10) Myocardial infarct ?I21.9 - Acute myocardial infarction, unspecified (ICD-10) CHF (congestive heart failure) ?I50.9 - Heart failure, unspecified (ICD-10) COPD (chronic obstructive pulmonary disease) ?J44.9 - Chronic obstructive pulmonary disease, unspecified (ICD-10) Chronic insomnia ?F51.04 - Psychophysiologic insomnia (ICD-10) Anxiety ?F41.9 - Anxiety disorder, unspecified (ICD-10) Recurrent depression ?F33.9 - Major depressive disorder, recurrent, unspecified (ICD-10) Chronic bipolar disorder ?F31.9 - Bipolar disorder, unspecified (ICD-10) Surgical History (Updated 04/08/24 @ 23:52 by Maria E Lopez RN) S/P triple vessel bypass ?Z95.1 - Presence of aortocoronary bypass graft (ICD-10) Family History (Updated 04/08/24 @ 20:31 by Maria E Lopez RN) Other Family history of CHF (congestive heart failure) Family history of COPD (chronic obstructive pulmonary disease) Family history of cancer Family history of diabetes mellitus Family history of myocardial infarction Social History (Updated 04/08/24 @ 20:34 by Maria E Lopez RN) Within the past year, how often did you have a drink containing alcohol: 2-3 times a week Within the past year, how many standard drinks containing alcohol did you have on a typical day: 3 or 4 Within the past year, how often did you have six or more drinks on one occasion: weekly Total score: 5 Score interpretation: A score of 4 or more indicates drinking is likely to affect patient's safety. Smoking status: Current every day smoker Non-prescribed substance use: denies use Highest level of school completed/degree received: 7th grade Little interest or pleasure in doing things: not at all Feeling down, depressed, or hopeless: not at all Do you think of yourself as: straight/heterosexual Gender Identity: male Meds Home Medications and Allergies Home Medications ?Medication ?Instructions ?Recorded ?Confirmed ?Type albuterol sulfate 90 mcg/actuation 1 inh inhalation Q4H PRN shortness 04/08/24 04/08/24 History aerosol inhaler of breath or wheezing escitalopram oxalate 20 mg tablet 20 mg PO DAILY 04/08/24 04/08/24 History furosemide 40 mg tablet 40 mg PO DAILY 04/08/24 04/08/24 History lisinopril 10 mg tablet 10 mg PO DAILY 04/08/24 04/08/24 History naproxen 500 mg tablet,delayed 500 mg PO Q12H 04/08/24 04/08/24 History release (EC-Naprosyn) tizanidine 4 mg capsule 4 mg PO BID PRN muscle spasticity 04/08/24 04/08/24 History trazodone 100 mg tablet 100 mg PO DAILY 04/08/24 04/08/24 History aspirin 81 mg tablet,delayed 81 mg PO DAILY 04/09/24 04/09/24 History release (Berta Low Dose Aspirin) Allergies Allergy/AdvReac Type Severity Reaction Status Date / Time doxycycline (From Vibramycin) AdvReac Severe Confusion Verified 04/08/24 15:35 methylprednisolone (From AdvReac Severe Confusion Verified 04/08/24 15:35 Medrol) oxycodone (From OxyContin) AdvReac Severe Confusion Verified 04/08/24 15:35 procaine (From Novocain) AdvReac Severe pass out Verified 04/08/24 15:35 nitroglycerin AdvReac Mild Rash Verified 04/08/24 15:35 Exam Constitutional Vital Signs, click to edit/add: Last Vital Signs Temp 97.9 F 04/09/24 05:30 Pulse 68 04/09/24 05:30 Resp 18 04/09/24 05:30 BP 161/77 H 04/09/24 05:30 Pulse Ox 91 L 04/09/24 05:30 O2 Del Method Room Air 04/09/24 05:30 Documenting provider has reviewed patient's vital signs: yes Common normals: apparent distress (Mild to moderate conversational dyspnea with cough throughout the evaluatio) Chest Common normals: inspection of chest normal Respiratory Common normals: no use of accessory muscles; abnormal respiratory effort (Mild to moderate conversational dyspnea with cough throughout the evaluatio) and not clear to ascultation bilaterally Auscultation: rhonchi and wheezes Cardio Common normals: regular rate and regular rhythm GI Common normals: Normal to inspection, nondistended, normoactive bowel sounds present Neuro Common normals: oriented x3, CN's II-XII intact bilaterally and moves all extremities Results Labs Labs: Short CBC 04/08/24 04/09/24 Range/Units 15:41 05:31 WBC 9.5 6.5 (4.0-11.0) 10^3/uL Hgb 12.7 L 11.8 L (14.0-18.0) g/dL Hct 37.7 L 34.3 L (42.0-54.0) % Plt Count 209 161 (150-450) 10^3/uL BMP 04/08/24 04/09/24 15:41 05:31 Sodium 141 141 Potassium 4.2 3.7 Chloride 103 105 Carbon Dioxide 27.7 28.9 BUN 21.0 H 17.0 Creatinine 1.07 0.99 Glucose 83 79 Calcium 8.8 7.8 L Liver Function 04/08/24 Range/Units 15:41 Total Bilirubin 0.9 (0.2-1.0) mg/dL AST 33 (15-37) U/L ALT 17 (16-63) U/L Alkaline Phosphatase 68 (46-116) U/L Albumin 3.2 L (3.4-5.0) g/dL Urine 04/08/24 Range/Units 17:15 Urine Color Lt. yellow (YELLOW) Urine Clarity Clear (CLEAR) Urine pH 6.0 (5.0-9.0) Ur Specific [place] 1.020 (1.005-1.025) Urine Protein Negative (NEG/TRACE) mg/dL Urine Glucose (UA) Negative (NEGATIVE) mg/dL Assessment and Plan Assessment and Plan (1) Chest wall contusion: (2) Dehydration: (3) Acute exacerbation of COPD with asthma: (4) Myocardial infarct: (5) CHF (congestive heart failure): (6) HTN (hypertension): Plan Admission findings: Tachycardia, respiratory distress, uncontrolled hypertension, lactic acidosis, chest wall pain secondary to fall resulting in acute exacerbation of COPD with positive sputum production consistent with acute bronchitis resulting in severe sepsis (tachycardia, respiratory distress, lactic acidosis, known infection source of Lungs) with mild dehydration Severe sepsis with a lactic acidosis as outlined above secondary to acute exacerbation of COPD secondary to acute bronchitis-dehydration cannot rule out pneumonia on initial scanning. IV antibiotics, aerosols, steroids, try to obtain sputum culture. 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 Continue with current treatment plan History of coronary artery disease-check on BNP Iron deficiency anemia-monitor daily Chest wall pain secondary to fall-no fractures-try Toradol IV GERD noted on CT [id number]-LT Protonix Tremor likely secondary to Parkinson's and alcohol abuse-maintain current medications Hypertension by history-continue home medications uncontrolled on admission Depression-continue with home medications Admission status: Patient with severe sepsis with lactic acidosis, sinus tachycardia, respiratory distress, acute exacerbation of COPD secondary to acute bronchitis, medically necessary treatment will span 2 midnights. Inpatient status.
--- NOTE | 2024-04-09 09:21 | CM.NOTE ---
Rounds made with Dr. Jiménez, no discharge today and will change pt to inpatient status. Pt continues with respiratory complaints. Pt having difficulty taking deep breaths d/t rib pain.
[2024-04-09] MEDS: PIPERACILLIN SODIUM/TAZOBACTAM 3.375 GM in 0.9 % SODIUM CHLORIDE 50 ML IV ×2 (09:52→16:03)
[2024-04-09] MEDS: FUROSEMIDE 40 MG TABLET PO (09:53)
[2024-04-09] MEDS: THIAMINE MONONITRATE (VIT B1) 100 MG TABLET PO (09:53)
[2024-04-09] MEDS: MULTIVITAMIN TABLET 1 TAB PO (09:53)
[2024-04-09] MEDS: ASPIRIN 81 MG TAB.CHEW PO (09:53)
[2024-04-09] MEDS: LISINOPRIL 10 MG TABLET PO (09:53)
[2024-04-09] MEDS: KETOROLAC TROMETHAMINE 30 MG/ML VIAL IVP ×3 (09:53→21:04)
[2024-04-09] MEDS: ESCITALOPRAM 10 MG TABLET 20 MG PO (09:53)
[2024-04-09] MEDS: DEXAMETHASONE SOD PHOS 10 MG/ML VIAL IV (10:09)
[2024-04-09] MEDS: IPRATROPIUM/ALBUTEROL SULFATE 3 ML AMPUL.NEB IH ×3 (11:02→22:32)
--- NOTE | 2024-04-09 12:41 | SWNOTE1 ---
See case management note.
--- NOTE | 2024-04-09 13:00 | CM.NOTE ---
Important Message From Medicare discussed with pt, pt verbalizes understanding and signs paper. Original given to pt and copy placed on pt's chart.
--- NOTE | 2024-04-09 13:15 | DIETREC ---
Recommend Ensure 1 container bid po nutritional supplement
[2024-04-09] MEDS: TRAZODONE HCL 50 MG TABLET 100 MG PO (21:04)
[2024-04-10] MEDS: PIPERACILLIN SODIUM/TAZOBACTAM 3.375 GM in 0.9 % SODIUM CHLORIDE 50 ML IV ×2 (02:17→08:05)
[2024-04-10] MEDS: KETOROLAC TROMETHAMINE 30 MG/ML VIAL IVP ×2 (02:17→08:05)
[2024-04-10] MEDS: 0.9 % SODIUM CHLORIDE 1,000 ML 100 ML IV (02:57)
[2024-04-10] MEDS: IPRATROPIUM/ALBUTEROL SULFATE 3 ML AMPUL.NEB IH (05:18)
[2024-04-10 05:22] VITALS: PULSE 91; O2SAT 97
[2024-04-10 05:28] VITALS: BP 129/72; PULSE 73; TEMP 36.6; O2SAT 94
[2024-04-10 05:53] LABS: Basophils Percent Auto 0.1 % (0.2-2.0); Eosinophils Percent Auto 0.6 % (0.9-7.0); Hematocrit 34.6 % (42.0-54.0); Hemoglobin 11.5 g/dL (14.0-18.0); Immature Granulocytes Abs Auto 0.03 10^3/uL (0.00-0.03); Immature Granulocytes Pct Auto 0.4 % (0.0-0.5); Lymphocytes Percent Auto 14.4 % (20.5-60.0); Mean Corpuscular HGB Conc 33.2 g/dL (29.9-35.2); Mean Corpuscular Hemoglobin 31.3 pg (25.9-34.0); Mean Platelet Volume 9.9 fL (9.5-13.5); Monocytes Absolute Auto 0.7 10^3/uL (0.3-0.8); Monocytes Percent Auto 9.2 % (1.7-12.0); Neutrophils Absolute Auto 5.4 10^3/uL (1.4-6.5); Neutrophils Percent Auto 75.3 % (43.0-75.0); Platelet Count 152 10^3/uL (150-450); Red Blood Count 3.68 10^6/uL (4.70-6.10); Red Cell Distribution Width 14.8 % (11.0-15.0); White Blood Count 7.2 10^3/uL (4.0-11.0)
[2024-04-10 06:07] LABS: Anion Gap 10.5; BUN Creatinine Ratio 11.5; Calcium 7.9 mg/dL (8.5-10.1); Carbon Dioxide 27.8 mmol/L (21.0-32.0); Chloride 107 mmol/L (98-107); Estimated GFR (African America >60 (>=60 mL/min/1.73m^2); Estimated GFR (Non-African Ame 58 (>=60 mL/min/1.73m^2); Glucose 134 mg/dL (74-106); Potassium 3.3 mmol/L (3.5-5.1); Sodium 142 mmol/L (136-145)
--- NOTE | 2024-04-10 07:38 | REH.PTDLY ---
Physical Therapy Daily Note PT Daily Note/Assess Start: 04/10/24 07:30 Freq: Status: Active Protocol: Document 04/10/24 07:30 LIANG (Rec: 04/10/24 07:38 LIANG [id number]) Physical Therapy Daily Note/Assessment Time In 07:10 Time Out 07:26 Subjective Pt awake in bed upon arrival. Willing to work with PT. States his feet feel hot, but not hot to the touch. Reports legs just feel tender. Coughing a lot and this aggravates R side ribs. Therapeutic Exercise 6 Minutes (minutes) Therapeutic Exercise 0 Units Therapeutic Exercise Instructed in supine B LE AP, QS, heel slides, and SLR Treatment 5-10x ea for improved strength for ease of transfers and gait. Seated marching, LAQ and hip add squeeze 10x ea with fatigue noted with add squeeze. Therapeutic Activity 8 Minutes (minutes) Therapeutic Activity 1 Units Therapeutic Activity Supine to sit transfers SBA with pt using bed rail to Comments assist in pulling himself up to sit. Pt states head hurts upon sitting, mildly improves after he sits for a minute or two. Sit to stand transfers from elevated bed CGA. Pt has mild unsteadiness noted initially upon standing, steadies himself with RW and CGA. Gait training with RW 50 feet CGA, sway noted at times with fatigue noted in B LEs. Cues for pt to reach back for chair upon sitting. Trialed consecutive sit to stand transfers, pt gets dizzy with first transfer and has LOB back into chair from rising too quickly, performed again with CGA and cues to slow down. Pt able to control himself better on second attempt when cued. Total Therapy 14 Minutes Total Physical 1 Therapy Units Daily Note Summary Pt is able to perform gait and transfers, but unsteady causing him to be a fall risk. Pt could benefit from short SNF stay to improve strength and reduce risk of falling upon DC.
[2024-04-10 08:05] VITALS: BP 159/81; PULSE 89; TEMP 36.7; O2SAT 95
[2024-04-10] MEDS: ASPIRIN 81 MG TAB.CHEW PO (08:05)
[2024-04-10] MEDS: DEXAMETHASONE SOD PHOS 10 MG/ML VIAL IV (08:05)
[2024-04-10] MEDS: FUROSEMIDE 40 MG TABLET PO (08:05)
[2024-04-10] MEDS: PANTOPRAZOLE SODIUM 40 MG VIAL IV (08:05)
[2024-04-10] MEDS: THIAMINE MONONITRATE (VIT B1) 100 MG TABLET PO (08:05)
[2024-04-10] MEDS: ESCITALOPRAM 10 MG TABLET 20 MG PO (08:05)
[2024-04-10] MEDS: LISINOPRIL 10 MG TABLET PO (08:05)
[2024-04-10] MEDS: MULTIVITAMIN TABLET 1 TAB PO (08:06)
--- NOTE | 2024-04-10 08:32 | CM.NOTE ---
Rounds made with Dr. Jiménez, pt will discharge today on P.O antibiotics. Pt will f/u with Dr. Jiménez as outpatient.
--- NOTE | 2024-04-10 08:59 | SWNOTE1 ---
SW was consulted for housing/group home. Case management did speak with pt about housing/group home and pt is going to return to the hotel he was at and he does have a crisis mobile team that follows patient.
--- NOTE | 2024-04-10 09:09 | P.DS_ITS ---
DS: Providers Provider Date of admission: 04/09/24 07:35 Primary care physician: Non-Staff Physician, Consults: 04/08/24 Consult to Shellfish Bed Worker Routine Reason for consult:: Housing/Usp 04/09/24 06:05 Occupational Therapy Eval and Treat Routine Reason for consultation: Only if needed for Rehab Has provider been notified: No Physical Therapy Eval and Treat Routine Reason for consultation: Eval and Treat Has provider been notified: No 04/09/24 09:00 Occupational Therapy Eval and Treat Routine Reason for consultation: Fall; Parkinson's Has provider been notified: No Physical Therapy Eval and Treat Routine Reason for consultation: Fall; Parkinson's Has provider been notified: No DS: Diagnosis Discharge Diagnosis (1) Chest wall contusion: (2) Dehydration: (3) Acute exacerbation of COPD with asthma: (4) Myocardial infarct: (5) CHF (congestive heart failure): (6) HTN (hypertension): Plan Admission findings: Tachycardia, respiratory distress, uncontrolled hypertension, lactic acidosis, chest wall pain secondary to fall resulting in acute exacerbation of COPD with positive sputum production consistent with acute bronchitis resulting in severe sepsis (tachycardia, respiratory distress, lactic acidosis, known infection source of Lungs) with mild dehydration Severe sepsis with a lactic acidosis as outlined above secondary to acute exacerbation of COPD secondary to acute bronchitis-improving at the time of discharge 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 Continue with current treatment plan History of coronary artery disease-check on BNP Iron deficiency anemia-monitor daily Chest wall pain secondary to fall-no fractures-stable at the time of discharge GERD noted on CT sfdy-khkkxviuhxy-lyakst at the time of discharge Tremor likely secondary to Parkinson's and alcohol abuse-maintain current medications Hypertension by history-continue home medications uncontrolled on admission Depression-continue with home medications Admission status: Patient with severe sepsis with lactic acidosis, sinus tachycardia, respiratory distress, acute exacerbation of COPD secondary to acute bronchitis, medically necessary treatment will span 2 midnights. Inpatient status. ? DS: Summary Hospital Course Hospital Course: Patient admitted with Tachycardia, respiratory distress, uncontrolled hypertension, lactic acidosis, chest wall pain secondary to fall resulting in acute exacerbation of COPD with positive sputum production consistent with acute bronchitis resulting in severe sepsis (tachycardia, respiratory distress, lactic acidosis, known infection source of Lungs) with mild dehydration. Placed on IV antibiotics, IV steroids, frequent aerosol treatments. Patient has significant dyspnea with any ambulation on initial admission. On the day of discharge, he is much improved able to ambulate in the hallway without hypoxia at this time. Although not back to his baseline he is much improved. No signs of alcohol withdrawal. At this point he will be discharged to home in improving condition. Medications see this. Can follow-up with me in the office within the next few days. Medications see list. Time Spent with Patient Time attestation: Total time spent providing and/or coordinating discharge services: Exam Constitutional Vital Signs, click to edit/add: Last Vital Signs Temp 98.1 F 04/10/24 08:05 Pulse 89 04/10/24 08:05 Resp 16 04/10/24 08:05 BP 159/81 H 04/10/24 08:05 Pulse Ox 95 04/10/24 08:05 O2 Del Method Room Air 04/10/24 08:05 Documenting provider has reviewed patient's vital signs: yes Common normals: no apparent distress Chest Common normals: inspection of chest normal Respiratory Common normals: normal respiratory effort, no retractions and no use of accessory muscles; not clear to ascultation bilaterally Auscultation: rhonchi; no wheezes Cardio Common normals: regular rate, regular rhythm and S1 normal heart sound DS: Data Data Completed and Pending Labs on day of discharge: Labs from last 24 hours 04/10/24 05:39 WBC 7.2 RBC 3.68 L Hgb 11.5 L Hct 34.6 L MCV 94.0 MCH 31.3 MCHC 33.2 RDW 14.8 Plt Count 152 MPV 9.9 Neut % (Auto) 75.3 H Lymph % (Auto) 14.4 L [place] % (Auto) 9.2 Eos % (Auto) 0.6 L Baso % (Auto) 0.1 L Neut # (Auto) 5.4 Lymph # (Auto) 1.0 L [place] # (Auto) 0.7 Eos # (Auto) 0.0 Baso # (Auto) 0.0 Abs Immat Gran (auto) 0.03 Imm/Tot Granulo (auto) 0.4 Sodium 142 Potassium 3.3 L Chloride 107 Carbon Dioxide 27.8 Anion Gap 10.5 BUN 14.0 Creatinine 1.22 Est GFR ( Amer) >60 Est GFR (Non-Af Amer) 58 L BUN/Creatinine Ratio 11.5 Glucose 134 H Calcium 7.9 L Discharge Plan Discharge Disposition: Home, Self-Care Discharge Medications: New dexamethasone 6 mg tablet 6 mg PO DAILY Qty: 5 0RF amoxicillin-pot clavulanate 875-125 mg tablet 1 tab PO Q12H Qty: 20 0RF Continued trazodone 100 mg tablet 100 mg PO DAILY escitalopram oxalate 20 mg tablet 20 mg PO DAILY furosemide 40 mg tablet 40 mg PO DAILY naproxen [EC-Naprosyn] 500 mg tablet,delayed release (DR/EC) 500 mg PO Q12H lisinopril 10 mg tablet 10 mg PO DAILY tizanidine 4 mg capsule 4 mg PO BID PRN (Reason: muscle spasticity) albuterol sulfate 90 mcg/actuation HFA aerosol inhaler 1 inh inhalation Q4H PRN (Reason: shortness of breath or wheezing) aspirin [Berta Low Dose Aspirin] 81 mg tablet,delayed release (DR/EC) 81 mg PO DAILY Print Language: Yi Forms: Portal Instructions Follow Up Appointments: @ 11:15am with Dr. Jiménez [phone]
--- NOTE | 2024-04-10 10:05 | SWNOTE1 ---
SW reviewed therapy notes from today and PT did mention short SNF stay. SW went in and spoke to pt about rehab. He voiced he had not had his blood pressure medications when they came in to work with him so that is why he was not feeling to great and felt dizzy. He has had his blood pressure meds now and feels better. SW asked about the hotel he was staying at. He stated he does not really like it there but not sure about going to care home. SW spoke to him about home health coming in to hotel and he was more open to this idea. He voiced the girl from the crisis team is coming between &12, SW to come back in. Pt requested SW card, SW provided to him. Pt then also asked about getting on first floor of hotel as they do not have an elevator. SW to call and check. Pt stated he was in room 204. Pt did also stated they crisis team is looking in to apartments for him, but have not had any luck at this time. Pt asked about custodial as well, SW advised that many times there is a wait list a well, SW to check with crisis team when they arrive. SW called [facility] and they do have a room on first floor, but it is not close to the front load trash truck driver. SW asked if pt was required to be by front load trash truck driver? He stated the person that usually books for pt has advised them to keep an eye on him since he is older. SW to speak to crisis team when they arrive.
--- NOTE | 2024-04-10 10:14 | SWNOTE1 ---
SW did speak with nurse and she unhooked pt from IV pole and walked with him and he was steady and did everything himself.
--- NOTE | 2024-04-10 11:30 | SWNOTE1 ---
RUDY went in to speak with Marybeth from crisis team. She did ask SW about discharge plans. RUDY expressed that pt is medically stable for discharge at this time. She let SW know that they have been in contact with several places for pt. They have been working with [facility] and he will have medicaid waiver in place on the and they will move him in to the [facility] on the . They were looking for a place for him until the . SW did mention the possibility of a respit stay. SW also let her know the other crisis sales floor team leader know that pt did work with OT yesterday and he did well and they signed off. PT worked with pt yesterday as well and they recommended HH, which SW can work on setting up. SW did advised the that PT worked with him this morning, early around 7:30, and he had not had his blood pressure meds yet and he did not do as well. SW let nursing know at that point. The nurse did go back in later in the morning and unhooked him from IV pole and walked him and he was steady and did everything for himself. SW let her know that a short term rehab stay is uncertain due to pt doing well with therapy. RUDY advised that SW can work on getting HH in to the hotel, but since he does not have a PCP that will be an issue. She stated they did get him an appointment for today with [facility] at 2:00. He had been kicked out due to no shows, but they got him back in. SW to attempt to get him HH set up. No preference on company. RUDY then asked Marybeth about a emergency respit stay at a nursing facility. She is open to RUDY looking in to this. SW to check with doctor in regards to stability for discharge today. RUDY did see the dc orders were in place already. Marybeth asked SW to speak outside the room. She stated they only get limited funding for each patient and she is not sure they can afford respit, but open to RUDY looking. RUDY called [facility] and they do not have openings. RUDY called [facility] and they do have openings and it would be $200 per day. RUDY let crisis team know, but at this time they want to move forward with discharging patient and getting him back to hotel. She requested DAILY as [place] go [place] different [place]. RUDY advised nurse of the plan. RUDY did message doctor who advised SW he can stay another day, but at this time the crisis team already took him and he is discharged. Referral sent to [facility]. Referral included face sheet, ED note, H&P, provider notes, case management report, , and PT/OT notes.
--- NOTE | 2024-04-10 13:22 | SWNOTE1 ---
[facility] is not able to accept. SW sent referral to [address]
--- NOTE | 2024-04-10 14:11 | SWNOTE1 ---
RUDY received call back from [address] and they are not able to accept at this time either. RUDY sent referral to [facility].
--- NOTE | 2024-04-10 14:14 | SWNOTE1 ---
SW reached out to [facility], waiting to hear back if they take insurance. SW called [facility] and they are not able to accept. It is possible that due to the social situation and pt's insurance that SW may not be able to find a company that can provide services.
--- NOTE | 2024-04-10 14:28 | SWNOTE1 ---
RUDY received a message back from Susana at [facility]. She let RUDY know that at times they can do [employer], they will need to review. RUDY faxed over referral.
--- NOTE | 2024-04-11 10:46 | SWNOTE1 ---
RUDY had an email and voicemail that was left yesterday evening from [facility]. They are able to accept. Susana from [facility] stopped in to the hospital to see pt, but he was dc yesterday. RUDY updated Susana that he was discharged. Susana voiced that they are accepting and they are hoping to get behavioral health services in as well to see pt. RUDY provided Susana with pt's sponsors contact as RUDY is unsure if pt has phone. RUDY advised Susana to call the sponsor and she will go in to more detail. RUDY also let Susana know that the goal by the crisis team was to have him placed at the [facility] on the once his medicaid waiver was approved. RUDY sent over dc med rec, CRF, and dc summary to [facility].
--- NOTE | 2024-04-12 11:43 | CM.DCFOLLOWU ---
2nd attempt 04/12/24, busy
--- NOTE | 2024-04-15 13:03 | CM.DCFOLLOWU ---
3rd attempt 04/15, busy
== END 2024-04-10 11:30 | disposition home health service (06) | DRG 872 ==
LOC: ER 19:24 → MS 20:14
PROVIDERS: Physician Assistant; Registered Nurse; Admitting Provider Family Medicine; Emergency Provider Emergency Medicine; Visit Provider Family Medicine
DX: A41.9 Sepsis, unspecified organism (principal); J44.0 Chronic obstructive pulmonary disease with (acute) lower respiratory infection; J44.1 Chronic obstructive pulmonary disease with (acute) exacerbation; D84.9 Immunodeficiency, unspecified; J20.9 Acute bronchitis, unspecified; R65.20 Severe sepsis without septic shock; R07.89 Other chest pain; F10.10 Alcohol abuse, uncomplicated; E86.0 Dehydration; I25.10 Atherosclerotic heart disease of native coronary artery without angina pectoris; D50.9 Iron deficiency anemia, unspecified; G20.A1 Parkinson's disease without dyskinesia, without mention of fluctuations; R06.03 Acute respiratory distress; Z95.1 Presence of aortocoronary bypass graft; F17.200 Nicotine dependence, unspecified, uncomplicated; S20.219A Contusion of unspecified front wall of thorax, initial encounter; W19.XXXA Unspecified fall, initial encounter; F17.210 Nicotine dependence, cigarettes, uncomplicated; F31.9 Bipolar disorder, unspecified; F41.9 Anxiety disorder, unspecified; Z79.82 Long term (current) use of aspirin; S00.81XA Abrasion of other part of head, initial encounter; Z91.81 History of falling; I25.2 Old myocardial infarction; I11.0 Hypertensive heart disease with heart failure; I50.9 Heart failure, unspecified; K21.00 Gastro-esophageal reflux disease with esophagitis, without bleeding
CPT/HCPCS: 36415; 70450; 71260; 72125; 74177; 80048; 80053; 80307; 80320; 81001; 83605; 83735; 84443; 84484; 85025; 85027; 85610; 87070; 90471; 90715; 93005; 94640; 94667; 94668; 94761; 96360; 96361; 97162; 97165; 97530; 99285; G0378; J1100; J1885; J2543; Q9967

== ENCOUNTER 2024-04-28 19:05 | Observation (INO) | payer MEDICARE, MEDICAID, SELFPAY ==
[2024-04-28 19:07] VITALS: BP 150/63; PULSE 81; TEMP 36.7; O2SAT 97; BMI 23.0
--- NOTE | 2024-04-28 19:40 | ECG_ITS ---
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
--- NOTE | 2024-04-28 19:40 | XR_ITS ---
[address] [address] Patient Name: LEONIDAS MILLER MRN: [id number] date: 1945 Sex: M Assigned Patient Location: ER Current Patient Location: ER Accession/Order Number: [id number] Exam Date: 04/28/2024 19:50 Report Date: 04/28/2024 20:46 At the request of: JANELL TERESA Procedure: XR chest 1V Exam: Radiographs: XR chest 1V Reason for exam: weak Comparison: Chest CT dated 04/08/2024 XR/XR chest 1V IMPRESSION: Pulmonary venous hypertension. Sternotomy. CABG. Hyperinflation of both lungs. Remainder of the chest is unremarkable. Electronically authenticated by: LANNY STORY Date: 04/28/2024 20:46
--- NOTE | 2024-04-28 19:47 | ED.GENADUL1 ---
HPI HPI - General Adult General Chief complaint: Weakness Stated complaint: Weakness Time Seen by Provider: 04/28/24 19:21 Source: patient Mode of arrival: ambulance History of Present Illness HPI narrative: 78-year-old male presents because he does not have a place to live. He was kicked out of the hotel that he has been staying at for the last month because he ran out of money. The patient tells me that he supposed to be going to an assisted living place in [place] on May 02. He has the card of the social media senior associate that is been helping him. He does not seem to have any specific physical complaints. He does not complain of chest pain or abdominal pain or fever or vomiting. Related Data Home Medications ?Medication ?Instructions ?Recorded ?Confirmed albuterol sulfate 90 mcg/actuation 1 inh inhalation Q4H PRN shortness 04/08/24 04/08/24 aerosol inhaler of breath or wheezing escitalopram oxalate 20 mg tablet 20 mg PO DAILY 04/08/24 04/08/24 furosemide 40 mg tablet 40 mg PO DAILY 04/08/24 04/08/24 lisinopril 10 mg tablet 10 mg PO DAILY 04/08/24 04/08/24 naproxen 500 mg tablet,delayed 500 mg PO Q12H 04/08/24 04/08/24 release (EC-Naprosyn) tizanidine 4 mg capsule 4 mg PO BID PRN muscle spasticity 04/08/24 04/08/24 trazodone 100 mg tablet 100 mg PO DAILY 04/08/24 04/08/24 aspirin 81 mg tablet,delayed 81 mg PO DAILY 04/09/24 04/09/24 release (Berta Low Dose Aspirin) Previous Rx's ?Medication ?Instructions ?Recorded amoxicillin 875 mg-potassium 1 tab PO Q12H #20 tabs 04/10/24 clavulanate 125 mg tablet dexamethasone 6 mg tablet 6 mg PO DAILY #5 tabs 04/10/24 Allergies Allergy/AdvReac Type Severity Reaction Status Date / Time doxycycline (From Vibramycin) AdvReac Severe Confusion Verified 04/08/24 15:35 methylprednisolone (From AdvReac Severe Confusion Verified 04/08/24 15:35 Medrol) oxycodone (From OxyContin) AdvReac Severe Confusion Verified 04/08/24 15:35 procaine (From Novocain) AdvReac Severe pass out Verified 04/08/24 15:35 nitroglycerin AdvReac Mild Rash Verified 04/08/24 15:35 Opioid HPI Opioid Management Most Recent Opioid Data: Last Pain Scale 5 04/09/24 16:00 04/09/24 Last ORT Total Score 6 04/08/24 20:21 04/08/24 Last ORT Risk Category Moderate Risk 04/08/24 20:21 04/08/24 Ur Phencyclidine Scrn Negative (NEGATIVE) 04/08/24 17:15 04/08/24 Review of Systems ROS Narrative A ten point review of systems is negative except as noted above. PFSH PFSH Medical History (Updated 04/14/24 @ 00:00 by ) Acute exacerbation of COPD with asthma ?J44.1 - Chronic obstructive pulmonary disease with (acute) exacerbation (ICD-10) Chest wall contusion ?S20.219A - Contusion of unspecified front wall of thorax, initial encounter (ICD-10) Dehydration ?E86.0 - Dehydration (ICD-10) Frequent falls ?R29.6 - Repeated falls (ICD-10) Weakness ?R53.1 - Weakness (ICD-10) HTN (hypertension) ?I10 - Essential (primary) hypertension (ICD-10) Bipolar 1 disorder ?F31.9 - Bipolar disorder, unspecified (ICD-10) Myocardial infarct ?I21.9 - Acute myocardial infarction, unspecified (ICD-10) CHF (congestive heart failure) ?I50.9 - Heart failure, unspecified (ICD-10) COPD (chronic obstructive pulmonary disease) ?J44.9 - Chronic obstructive pulmonary disease, unspecified (ICD-10) Chronic insomnia ?F51.04 - Psychophysiologic insomnia (ICD-10) Anxiety ?F41.9 - Anxiety disorder, unspecified (ICD-10) Recurrent depression ?F33.9 - Major depressive disorder, recurrent, unspecified (ICD-10) Chronic bipolar disorder ?F31.9 - Bipolar disorder, unspecified (ICD-10) Surgical History (Updated 04/08/24 @ 23:52 by Maria E Lopez RN) S/P triple vessel bypass ?Z95.1 - Presence of aortocoronary bypass graft (ICD-10) Family History (Updated 04/08/24 @ 20:31 by Maria E Lopez RN) Other Family history of CHF (congestive heart failure) Family history of COPD (chronic obstructive pulmonary disease) Family history of cancer Family history of diabetes mellitus Family history of myocardial infarction Social History (Updated 04/08/24 @ 20:34 by Maria E Lopez RN) Within the past year, how often did you have a drink containing alcohol: 2-3 times a week Within the past year, how many standard drinks containing alcohol did you have on a typical day: 3 or 4 Within the past year, how often did you have six or more drinks on one occasion: weekly Total score: 5 Score interpretation: A score of 4 or more indicates drinking is likely to affect patient's safety. Smoking status: Current every day smoker Non-prescribed substance use: denies use Highest level of school completed/degree received: 7th grade Little interest or pleasure in doing things: not at all Feeling down, depressed, or hopeless: not at all Do you think of yourself as: straight/heterosexual Gender Identity: male Exam Narrative Exam Narrative: Nurses note and vital signs reviewed and patient is not hypoxic. General: The patient appears in no apparent distress. Patient is resting comfortably on cart. Skin: Warm, dry, no pallor noted. There is no rash noted. Head: Normocephalic, atraumatic Eye: Normal conjunctiva, no drainage Ears, Nose, Mouth, and Throat: oral mucosa is moist. Nares patent. Cigarette smoke staining present on his upper lip and lip. Cardiovascular: Regular Rate and Rhythm Respiratory: Patient is in no distress, no accessory muscle use, lungs are clear to auscultation, no wheezing, rales or rhonchi Back: non-tender GI: Soft and nontender Musculoskeletal: The patient has no evidence of calf tenderness, no pitting edema, symmetrical pulses noted bilaterally Neurological: A&O, normal speech Psychiatric: Cooperative Constitutional Vital Signs, click to edit/add: Last Vital Signs Temp 98.0 F 04/28/24 19:07 Pulse 81 04/28/24 19:07 Resp 16 04/28/24 19:07 BP 150/63 H 04/28/24 19:07 Pulse Ox 97 04/28/24 19:07 O2 Del Method Room Air 04/28/24 19:07 Course Vital Signs Vital signs: Vital Signs Temperature 98.0 F 04/28/24 19:07 Pulse Rate 81 04/28/24 19:07 Respiratory Rate 16 04/28/24 19:07 Blood Pressure 150/63 H 04/28/24 19:07 Pulse Oximetry 97 04/28/24 19:07 Oxygen Delivery Method Room Air 04/28/24 19:07 Temperature 98.0 F 04/28/24 19:07 Pulse Rate 81 04/28/24 19:07 Respiratory Rate 16 04/28/24 19:07 Blood Pressure 150/63 H 04/28/24 19:07 Pulse Oximetry 97 04/28/24 19:07 Oxygen Delivery Method Room Air 04/28/24 19:07 Medical Decision Making MDM Narrative Medical decision making narrative: His medical workup is negative. The patient will be admitted for observation to allow social staff worker to place him. He allegedly has a social media senior associate that he has been working with to get placed in an unknown assisted living facility. Differential Diagnosis Differential Diagnosis: Poor social situation, generalized weakness, dehydration Lab Data Lab results reviewed: Yes I reviewed the patient's lab results Labs: Lab Results 04/28/24 04/28/24 Range/Units 20:10 20:20 WBC 9.9 (4.0-11.0) 10^3/uL RBC 3.65 L (4.70-6.10) 10^6/uL Hgb 11.6 L (14.0-18.0) g/dL Hct 34.6 L (42.0-54.0) % MCV 94.8 H (80.0-94.0) fL MCH 31.8 (25.9-34.0) pg MCHC 33.5 (29.9-35.2) g/dL RDW 14.2 (11.0-15.0) % Plt Count 156 (150-450) 10^3/uL MPV 9.7 (9.5-13.5) fL Neut % (Auto) 80.9 H (43.0-75.0) % Lymph % (Auto) 9.4 L (20.5-60.0) % [place] % (Auto) 6.2 (1.7-12.0) % Eos % (Auto) 2.0 (0.9-7.0) % Baso % (Auto) 0.4 (0.2-2.0) % Neut # (Auto) 8.0 H (1.4-6.5) 10^3/uL Lymph # (Auto) 0.9 L (1.2-3.8) 10^3/uL [place] # (Auto) 0.6 (0.3-0.8) 10^3/uL Eos # (Auto) 0.2 (0.0-0.7) 10^3/uL Baso # (Auto) 0.0 (0.0-0.1) 10^3/uL Abs Immat Gran (auto) 0.11 H (0.00-0.03) 10^3/uL Imm/Tot Granulo (auto) 1.1 H (0.0-0.5) % Sodium 136 (136-145) mmol/L Potassium 3.6 (3.5-5.1) mmol/L Chloride 104 (98-107) mmol/L Carbon Dioxide 30.3 (21.0-32.0) mmol/L Anion Gap 5.3 BUN 14.0 (7.0-18.0) mg/dL Creatinine 0.94 (0.70-1.30) mg/dL Est GFR ( Amer) >60 (>=60 mL/min/1.73m^2) Est GFR (Non-Af Amer) >60 (>=60 mL/min/1.73m^2) BUN/Creatinine Ratio 14.9 Glucose 118 H (74-106) mg/dL Calcium 8.0 L (8.5-10.1) mg/dL Urine Color Lt. yellow (YELLOW) Urine Clarity Clear (CLEAR) Urine pH 6.0 (5.0-9.0) Ur Specific [place] <=1.005 A (1.005-1.025) Urine Protein Negative (NEG/TRACE) mg/dL Urine Glucose (UA) Negative (NEGATIVE) mg/dL Urine Ketones Negative (NEGATIVE) mg/dL Urine Occult Blood Negative (NEGATIVE) Urine Nitrite Negative (NEGATIVE) Urine Bilirubin Negative (NEGATIVE) Urine Urobilinogen 0.2 (0.2-1.0) EU/dL Ur Leukocyte Esterase Negative (NEGATIVE) Urine RBC 0-2 (0-2) #/HPF Urine WBC 0-2 A (NONE SEEN) #/HPF Ur Squamous Epith Cells None seen (NONE/RARE) #/LPF Urine Crystals None seen (None Seen) #/HPF Urine Bacteria None seen (NONE SEEN) #/HPF Urine Casts None seen (NONE SEEN) #/LPF Urine Mucus None seen (NONE SEEN) Ur Culture Indicated? No Imaging Data Chest x-ray: Radiologist's impression: ITS Impressions Chest X-Ray 04/28/24 19:40 IMPRESSION: Pulmonary venous hypertension. Sternotomy. CABG. Hyperinflation of both lungs. Remainder of the chest is unremarkable. Electronically authenticated by: LANNY STORY Date: 04/28/2024 20:46 ECG Data Attestation: I personally reviewed and interpreted this ECG as follows: (EKG on my interpretation shows sinus rhythm with a right bundle branch block and no acute change.) Discharge Plan Discharge Chief Complaint: Weakness Clinical Impression: Poor social situation Patient Disposition: Admitted as Observation Time of Disposition Decision: 21:10 Condition: Good
[2024-04-28 20:23] LABS: Basophils Percent Auto 0.4 % (0.2-2.0); Eosinophils Absolute Auto 0.2 10^3/uL (0.0-0.7); Hematocrit 34.6 % (42.0-54.0); Hemoglobin 11.6 g/dL (14.0-18.0); Immature Granulocytes Abs Auto 0.11 10^3/uL (0.00-0.03); Immature Granulocytes Pct Auto 1.1 % (0.0-0.5); Lymphocytes Absolute Auto 0.9 10^3/uL (1.2-3.8); Lymphocytes Percent Auto 9.4 % (20.5-60.0); Mean Corpuscular HGB Conc 33.5 g/dL (29.9-35.2); Mean Corpuscular Hemoglobin 31.8 pg (25.9-34.0); Mean Corpuscular Volume 94.8 fL (80.0-94.0); Mean Platelet Volume 9.7 fL (9.5-13.5); Monocytes Absolute Auto 0.6 10^3/uL (0.3-0.8); Monocytes Percent Auto 6.2 % (1.7-12.0); Neutrophils Percent Auto 80.9 % (43.0-75.0); Platelet Count 156 10^3/uL (150-450); Red Blood Count 3.65 10^6/uL (4.70-6.10); Red Cell Distribution Width 14.2 % (11.0-15.0); White Blood Count 9.9 10^3/uL (4.0-11.0)
[2024-04-28 20:25] LABS: Bilirubin Urine NEGATIVE (NEGATIVE); Blood Urine NEGATIVE (NEGATIVE); Clarity Urine CLEAR (CLEAR); Color Urine LT. YELLOW (YELLOW); Glucose Urine UA NEGATIVE (NEGATIVE); Ketones Urine NEGATIVE (NEGATIVE); Leukocyte Esterase Urine NEGATIVE (NEGATIVE); Nitrite Urine NEGATIVE (NEGATIVE); Protein Urine NEGATIVE (NEG/TRACE); Specific Gravity Urine <=1.005 (1.005-1.025); Urobilinogen Urine 0.2 EU/dL (0.2-1.0)
[2024-04-28 20:31] LABS: Bacteria Urine NONE SEEN #/HPF (NONE SEEN); Cast Seen? NONE SEEN #/LPF (NONE SEEN); Crystals Seen? None Seen #/HPF (None Seen); Mucus Urine NONE SEEN (NONE SEEN); RBC Urine 0-2 #/HPF (0-2); Squamous Epithelial Cell Urine NONE SEEN #/LPF (NONE/RARE); Urine Culture Indicated NO; WBC Urine 0-2 #/HPF (NONE SEEN)
--- NOTE | 2024-04-28 20:32 | PC.NURSE ---
Patient to ED by EMS from [place]. He states that he has been living at the [facility] and was just kicked out for not having any money. He arrives to the ED today with all of his belongings. He claims that he is not able to walk due to his legs not working, but he is able to move them in the bed to disrobe. This is discussed with Dr. Hernandez to make him aware that this patient has no place to go in the event that he is discharged tonight.
[2024-04-28 20:34] LABS: Anion Gap 5.3; BUN Creatinine Ratio 14.9; Carbon Dioxide 30.3 mmol/L (21.0-32.0); Chloride 104 mmol/L (98-107); Estimated GFR (African America >60 (>=60 mL/min/1.73m^2); Estimated GFR (Non-African Ame >60 (>=60 mL/min/1.73m^2); Glucose 118 mg/dL (74-106); Potassium 3.6 mmol/L (3.5-5.1); Sodium 136 mmol/L (136-145)
[2024-04-28 21:57] VITALS: BP 129/73; PULSE 95; TEMP 36.8; O2SAT 95; BMI 20.9
[2024-04-29] VITALS (7 sets, daily range): BP systolic 102–174; BP diastolic 64–90; PULSE 72–99; TEMP 36.4–37; O2SAT 94–97
[2024-04-29 06:49] LABS: Basophils Absolute Auto 0.1 10^3/uL (0.0-0.1); Basophils Percent Auto 0.5 % (0.2-2.0); Eosinophils Absolute Auto 0.2 10^3/uL (0.0-0.7); Hematocrit 33.1 % (42.0-54.0); Hemoglobin 11.1 g/dL (14.0-18.0); Immature Granulocytes Abs Auto 0.17 10^3/uL (0.00-0.03); Immature Granulocytes Pct Auto 1.7 % (0.0-0.5); Lymphocytes Absolute Auto 1.1 10^3/uL (1.2-3.8); Lymphocytes Percent Auto 10.8 % (20.5-60.0); Mean Corpuscular HGB Conc 33.5 g/dL (29.9-35.2); Mean Corpuscular Hemoglobin 32.7 pg (25.9-34.0); Mean Corpuscular Volume 97.6 fL (80.0-94.0); Mean Platelet Volume 10.2 fL (9.5-13.5); Monocytes Absolute Auto 0.8 10^3/uL (0.3-0.8); Monocytes Percent Auto 7.6 % (1.7-12.0); Neutrophils Absolute Auto 7.8 10^3/uL (1.4-6.5); Neutrophils Percent Auto 77.4 % (43.0-75.0); Platelet Count 148 10^3/uL (150-450); Red Blood Count 3.39 10^6/uL (4.70-6.10); Red Cell Distribution Width 14.5 % (11.0-15.0); White Blood Count 10.1 10^3/uL (4.0-11.0)
[2024-04-29 07:10] LABS: Alanine Aminotransferase 18 U/L (16-63); Albumin Globulin Ratio 1.1; Albumin Level 3.2 g/dL (3.4-5.0); Alkaline Phosphatase 62 U/L (46-116); Anion Gap 10.3; Aspartate Amino Transferase 19 U/L (15-37); BUN Creatinine Ratio 12.9; Bilirubin Total 0.7 mg/dL (0.2-1.0); Calcium 8.3 mg/dL (8.5-10.1); Carbon Dioxide 30.4 mmol/L (21.0-32.0); Chloride 103 mmol/L (98-107); Estimated GFR (African America >60 (>=60 mL/min/1.73m^2); Estimated GFR (Non-African Ame >60 (>=60 mL/min/1.73m^2); Globulin 2.8 g/dL; Glucose 89 mg/dL (74-106); Potassium 4.7 mmol/L (3.5-5.1); Sodium 139 mmol/L (136-145)
[2024-04-29 07:12] LABS: Alanine Aminotransferase 19 U/L (16-63); Albumin Globulin Ratio 1.1; Albumin Level 3.1 g/dL (3.4-5.0); Alkaline Phosphatase 62 U/L (46-116); Aspartate Amino Transferase 19 U/L (15-37); Bilirubin Direct 0.2 mg/dL (0.0-0.2); Bilirubin Total 0.7 mg/dL (0.2-1.0); Globulin 2.9 g/dL; Thyroid Stimulating Hormone 2.084 uIU/mL (0.358-3.740)
[2024-04-29] MEDS: ESCITALOPRAM 10 MG TABLET 20 MG PO (08:37)
[2024-04-29] MEDS: TRAZODONE HCL 50 MG TABLET 100 MG PO (08:38)
[2024-04-29] MEDS: LISINOPRIL 10 MG TABLET PO (08:38)
[2024-04-29] MEDS: FUROSEMIDE 40 MG TABLET PO (08:38)
[2024-04-29] MEDS: ASPIRIN 81 MG TABLET.DR PO (08:38)
--- NOTE | 2024-04-29 09:00 | CM.NOTE ---
Medicare Outpatient Observation Notice discussed with pt, pt verbalizes understanding and signs paper. Original given to pt and copy placed in pt's chart.
--- NOTE | 2024-04-29 09:06 | P.HP_ITS ---
HPI H&P: HPI History of Present Illness Chief complaint: Weakness Poor social situation dehydration Narrative: Patient presented to the emergency room with increasing weakness in his lower extremities and paresthesias in his lower extremities. Workup in the past has been unremarkable, but this has been a progressive nature. I saw patient up in the medical surgical floor, resting comfortably in bed other than the complaint of the paresthesias and weakness in his lower extremities he had no other complaints Opioid HPI Opioid Management Most Recent Pain and Opioid Data: Last Pain Scale 5 04/09/24 16:00 04/09/24 Last Pain Assessment 04/29/24 09:20 Last ORT Total Score 6 04/28/24 21:57 04/28/24 Last ORT Risk Category Moderate Risk 04/28/24 21:57 04/28/24 Ur Phencyclidine Scrn Negative (NEGATIVE) 04/08/24 17:15 12/01/22 Review of Systems ROS Status of ROS 10 or more systems reviewed and unremark able except as noted in history and below PFSH PFS Medical History Acute exacerbation of COPD with asthma ?J44.1 - Chronic obstructive pulmonary disease with (acute) exacerbation (ICD-10) Chest wall contusion ?S20.219A - Contusion of unspecified front wall of thorax, initial encounter (ICD-10) Dehydration ?E86.0 - Dehydration (ICD-10) Frequent falls ?R29.6 - Repeated falls (ICD-10) Weakness ?R53.1 - Weakness (ICD-10) HTN (hypertension) ?I10 - Essential (primary) hypertension (ICD-10) Bipolar 1 disorder ?F31.9 - Bipolar disorder, unspecified (ICD-10) Myocardial infarct ?I21.9 - Acute myocardial infarction, unspecified (ICD-10) CHF (congestive heart failure) ?I50.9 - Heart failure, unspecified (ICD-10) COPD (chronic obstructive pulmonary disease) ?J44.9 - Chronic obstructive pulmonary disease, unspecified (ICD-10) Chronic insomnia ?F51.04 - Psychophysiologic insomnia (ICD-10) Anxiety ?F41.9 - Anxiety disorder, unspecified (ICD-10) Recurrent depression ?F33.9 - Major depressive disorder, recurrent, unspecified (ICD-10) Chronic bipolar disorder ?F31.9 - Bipolar disorder, unspecified (ICD-10) Surgical History S/P triple vessel bypass ?Z95.1 - Presence of aortocoronary bypass graft (ICD-10) Family History Other Family history of CHF (congestive heart failure) Family history of COPD (chronic obstructive pulmonary disease) Family history of cancer Family history of diabetes mellitus Family history of myocardial infarction Social History (Updated 04/28/24 @ 22:14 by Stephanie Hammonds RN) Within the past year, how often did you have a drink containing alcohol: 2-3 times a week Within the past year, how many standard drinks containing alcohol did you have on a typical day: 3 or 4 Within the past year, how often did you have six or more drinks on one occasion: weekly Total score: 5 Score interpretation: A score of 4 or more indicates drinking is likely to affect patient's safety. Smoking status: Current every day smoker Non-prescribed substance use: denies use Known occupational exposures/hazards: No Highest level of school completed/degree received: 7th grade Little interest or pleasure in doing things: not at all Feeling down, depressed, or hopeless: not at all Do you think of yourself as: straight/heterosexual Gender Identity: male Meds Home Medications and Allergies Home Medications ?Medication ?Instructions ?Recorded ?Confirmed ?Type albuterol sulfate 90 mcg/actuation 1 inh inhalation Q4H PRN shortness 04/08/24 04/08/24 History aerosol inhaler of breath or wheezing escitalopram oxalate 20 mg tablet 20 mg PO DAILY 04/08/24 04/08/24 History furosemide 40 mg tablet 40 mg PO DAILY 04/08/24 04/08/24 History lisinopril 10 mg tablet 10 mg PO DAILY 04/08/24 04/08/24 History naproxen 500 mg tablet,delayed 500 mg PO Q12H 04/08/24 04/08/24 History release (EC-Naprosyn) tizanidine 4 mg capsule 4 mg PO BID PRN muscle spasticity 04/08/24 04/08/24 History trazodone 100 mg tablet 100 mg PO DAILY 04/08/24 04/08/24 History aspirin 81 mg tablet,delayed 81 mg PO DAILY 04/09/24 04/09/24 History release (Berta Low Dose Aspirin) amoxicillin 875 mg-potassium 1 tab PO Q12H #20 tabs 04/10/24 Rx clavulanate 125 mg tablet dexamethasone 6 mg tablet 6 mg PO DAILY #5 tabs 04/10/24 Rx Allergies Allergy/AdvReac Type Severity Reaction Status Date / Time doxycycline (From Vibramycin) AdvReac Severe Confusion Verified 04/08/24 15:35 methylprednisolone (From AdvReac Severe Confusion Verified 04/08/24 15:35 Medrol) oxycodone (From OxyContin) AdvReac Severe Confusion Verified 04/08/24 15:35 procaine (From Novocain) AdvReac Severe pass out Verified 04/08/24 15:35 nitroglycerin AdvReac Mild Rash Verified 04/08/24 15:35 Exam Constitutional Vital Signs, click to edit/add: Last Vital Signs Temp 98.0 F 04/29/24 08:40 Pulse 74 04/29/24 08:40 Resp 18 04/29/24 08:40 BP 169/90 H 04/29/24 08:40 Pulse Ox 96 04/29/24 08:40 O2 Del Method Room Air 04/29/24 08:40 Documenting provider has reviewed patient's vital signs: yes Common normals: no apparent distress Chest Common normals: inspection of chest normal and palpation of chest normal Respiratory Common normals: normal respiratory effort, no retractions and no use of accessory muscles Cardio Common normals: regular rate and regular rhythm GI Common normals: Normal to inspection, nondistended, normoactive bowel sounds present Extremity Common normals: normal to inspection, full ROM (Somewhat weak compared to baseline) and no clubbing, cyanosis or edema Results Labs Labs: Short CBC 04/28/24 04/29/24 Range/Units 20:10 05:57 WBC 9.9 10.1 (4.0-11.0) 10^3/uL Hgb 11.6 L 11.1 L (14.0-18.0) g/dL Hct 34.6 L 33.1 L (42.0-54.0) % Plt Count 156 148 L (150-450) 10^3/uL BMP 04/28/24 04/29/24 20:10 05:57 Sodium 136 139 Potassium 3.6 4.7 Chloride 104 103 Carbon Dioxide 30.3 30.4 BUN 14.0 11.0 Creatinine 0.94 0.85 Glucose 118 H 89 Calcium 8.0 L 8.3 L Liver Function 04/29/24 04/29/24 04/29/24 Range/Units 05:57 05:57 05:57 Total Bilirubin 0.7 0.7 (0.2-1.0) mg/dL Direct Bilirubin 0.2 (0.0-0.2) mg/dL AST 19 19 (15-37) U/L ALT 18 (16-63) U/L Alkaline Phosphatase (46-116) U/L Albumin (3.4-5.0) g/dL 04/29/24 04/29/24 04/29/24 Range/Units 05:57 05:57 05:57 Total Bilirubin (0.2-1.0) mg/dL Direct Bilirubin (0.0-0.2) mg/dL AST (15-37) U/L ALT 19 (16-63) U/L Alkaline Phosphatase 62 62 (46-116) U/L Albumin 3.2 L 3.1 L (3.4-5.0) g/dL Urine 04/28/24 Range/Units 20:20 Urine Color Lt. yellow (YELLOW) Urine Clarity Clear (CLEAR) Urine pH 6.0 (5.0-9.0) Ur Specific [place] <=1.005 A (1.005-1.025) Urine Protein Negative (NEG/TRACE) mg/dL Urine Glucose (UA) Negative (NEGATIVE) mg/dL Assessment and Plan Assessment and Plan (1) Weakness: (2) Frequent falls: (3) HTN (hypertension): Plan Admission findings: Sinus tachycardia and uncontrolled high blood pressure and lower extremity paresthesias Lower extremity paresthesias-workup in the past has been unremarkable, physical therapy to work with patient, will see if the evaluation at that point recommends rehabilitation which could benefit him long-term Ohfnjdwbuojh-srvyhfrhqojf-cpjwhuby this morning, continue with current treatment Tachycardia-so far improved, will monitor closely, possibly related to dehydration Admission status: Place patient observation, physical therapy to evaluate patient today, medically necessary treatment may span 2 midnights and will change patient inpatient status if medically appropriate treatment will span is 2 midnights
--- NOTE | 2024-04-29 09:30 | CM.NOTE ---
Rounds made with Dr. Jiménez, pt c/o lower extremity weakness and numbness. Dr. Jiménez discussed with pt signs and symptoms of neuropathy and underlying causes. PT and OT will assess pt for further discharge planning. Pt states he is homeless d/t unable to pay at hotel and was kicked out. Pt did say he will get check tonight after midnight from Social security. Pt does say his Medicaid will kick in as of May 02 and he will be placed at an Assistive Living. Pt does state he has been in a homeless custodial in [place] in the past, he was kicked out d/t relapse in alcohol use. Pt is open to returning to Homeless custodial. Pt states his bending shed worker through the crisis team is on vacation until after the New Year, he is unable to contact her at this time.
--- NOTE | 2024-04-29 10:57 | CM.NOTE ---
Discussed with pt PT recommendations for skilled therapy at discharge, pt in agreement for skilled therapy and would like to go to [facility] or [facility]. New Referral sent to both and awaiting for acceptance.
--- NOTE | 2024-04-29 12:17 | CM.NOTE ---
Bebo called from [facility] and they are looking over referral. Bebo given home worker name and number from crisis center assigned to patient.
--- NOTE | 2024-04-29 13:30 | CM.NOTE ---
Bebo chavez [facility] unable to accept pt and [facility] does not have any bed availability.
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
--- NOTE | 2024-04-29 15:53 | CM.NOTE ---
Spoke with Administration Linda, plan would be to keep patient at hospital overnight until his paycheck comes tomorrow to pay for hotel. Pt will receive PT and OT to re-evaluate for additional needs moving forward. Pt called and booked a room at [facility] in [facility] for 88 dollars. Pt voices he is agreeable to this plan. Pt states his nurse case manager is getting him into an AL May 02. Pt did call the bank while Case Management in room, they confirmed Social security deposit on 04/30. Called Dr. Jiménez and he is in agreement with plan.
--- NOTE | 2024-04-29 15:59 | CM.NOTE ---
Called [facility] for skilled bed and spoke with [facility], [facility] explained pt was level 2 on PASSAR and unable to take pt until this has been approved. Called office of aging and they confirmed that this has not gone through and pt would not be able to be placed for skilled until approved. Office of ageing unable to give me time frame when this could be done. Called and updated Dr. Jiménez.
[2024-04-30 04:56] VITALS: BP 139/77; PULSE 93; TEMP 36.3; O2SAT 97
[2024-04-30 07:45] VITALS: BP 136/75; PULSE 105; O2SAT 94
[2024-04-30 08:55] VITALS: BP 136/75
[2024-04-30] MEDS: LISINOPRIL 10 MG TABLET PO (08:55)
[2024-04-30] MEDS: ESCITALOPRAM 10 MG TABLET 20 MG PO (08:55)
[2024-04-30] MEDS: ASPIRIN 81 MG TABLET.DR PO (08:55)
[2024-04-30] MEDS: FUROSEMIDE 40 MG TABLET PO (08:55)
[2024-04-30] MEDS: TRAZODONE HCL 50 MG TABLET 100 MG PO (08:55)
--- NOTE | 2024-04-30 09:01 | SWNOTE1 ---
Please see case management documentation from yesterday in regards to housing and finances. Pt is walking the halls today with walker. Pt is being discharged today to the [facility] in [place]. Pt called his card today the money was deposited on to his card so he is able to pay for his hotel room. RUDY called trips and they will be here between 11:15-11:45 to take patient to [facility]. RUDY did ask pt about the AL on May 02. Pt does plan on going to AL on 05/02/24. RUDY notified nursing of time.
--- NOTE | 2024-04-30 09:05 | CM.NOTE ---
Rounds made with Dr. Jiménez, pt up ambulating in hallway per self. Pt denies any issues with ambulation or balance. Pt will discharge today.
--- NOTE | 2024-04-30 09:07 | REH.PTDLY ---
Physical Therapy Daily Note PT Daily Note/Assess Start: 04/30/24 08:53 Freq: Status: Active Protocol: Document 04/30/24 08:54 LIANG (Rec: 04/30/24 09:07 LIANG [id number]) Physical Therapy Daily Note/Assessment Time In 08:05 Time Out 08:20 Subjective Pt is standing in hallway with RW talking to nurses. Pt is up ambulating on his own. Nursing states pt has been walking around all morning. Pt states he is leaving today to go to the [facility] and stay. Therapeutic Exercise 3 Minutes (minutes) Therapeutic Exercise 0 Units Therapeutic Exercise Instructed in standing marching with UE support on RW, Treatment pt states this is tiring and only able to perform 5x as his legs feel like they 'weigh a ton'. Instructed in mini squats with pt only performing 1x with UE support and says he can't as he feels like his legs will give out. Therapeutic Activity 11 Minutes (minutes) Therapeutic Activity 1 Units Therapeutic Activity Pt up in hallway already ambulating Ind. Walked Comments alongside pt for 260 feet with pt using RW, no LOB noted when he has UE support. Once in room instructed in sit to stand transfers from chair 3x with pt having mild instability initially upon standing and, but is steady once hands are on RW. Attempted standing balance with no UE support from RW, but pt only able to stand for about 10 seconds with retro lean being noted and him grabbing for RW again. Pt returns to seated position in chair. Total Therapy 14 Minutes Total Physical 1 Therapy Units Daily Note Summary Pt up ambulating ind in hallways, however when pt does not have UE support of RW he is unsteady and leans posteriorly. Pt states when he has fallen recently it is due to his legs falling asleep after sitting for a period of time and his legs buckling when he does stand up. Recommended SNF stay due to imbalance and posterior lean initially upon standing and standing tolerance with no UE support. However, pt is unable to go SNF at this time per piano case maker. Plan is for pt to go to a hotel for a couple days and then he was scheduled to go to Assisted Living after May.02. Pt owns a RW which is recommended AD at this time for pt to use.
--- NOTE | 2024-04-30 13:05 | P.DS_ITS ---
DS: Providers Provider Date of admission: 04/28/24 21:48 Primary care physician: Non-Staff Physician, Consults: 04/28/24 Consult to Guest Relations Officer Routine Reason for consult:: Financial Concerns Housing/Intermediate 04/29/24 07:00 Occupational Therapy Eval and Treat Routine Reason for consultation: weakness Has provider been notified: No 04/29/24 09:00 Physical Therapy Eval and Treat Routine Reason for consultation: weakness Has provider been notified: No DS: Diagnosis Discharge Diagnosis (1) Weakness: (2) Frequent falls: (3) HTN (hypertension): Plan Admission findings: Sinus tachycardia and uncontrolled high blood pressure and lower extremity paresthesias Lower extremity paresthesias-workup in the past has been unremarkable, physical therapy to work with patient, will see if the evaluation at that point recommends rehabilitation which could benefit him long-term Adzcfjwpvuyl-mmqjhaaphyww-fyczuypx this morning, continue with current treatment Tachycardia-so far improved, will monitor closely, possibly related to dehydration Admission status: Place patient observation, physical therapy to evaluate patient today, medically necessary treatment may span 2 midnights and will change patient inpatient status if medically appropriate treatment will span is 2 midnights ? DS: Summary Hospital Course Hospital Course: Patient presented to the emergency room with weakness and paresthesias in his lower extremities, difficulty ambulating secondary to that, he was admitted, observed, physical therapy work with patient, he is ambulating with walker this morning improved, he will be discharged home in improving condition. Medications see list. Follow-up with PCP within the next week. Status at Discharge Overall status at discharge: patient is not back to baseline Time Spent with Patient Time attestation: Total time spent providing and/or coordinating discharge services: Time spent: greater than 30 minutes Exam Constitutional Vital Signs, click to edit/add: Last Vital Signs Temp 97.3 F L 04/30/24 04:56 Pulse 105 H 04/30/24 07:45 Resp 18 04/30/24 07:45 BP 136/75 04/30/24 08:55 Pulse Ox 94 L 04/30/24 07:45 O2 Del Method Room Air 04/30/24 07:45 Documenting provider has reviewed patient's vital signs: yes Common normals: no apparent distress Chest Common normals: inspection of chest normal and palpation of chest normal Respiratory Common normals: normal respiratory effort, no retractions and no use of accessory muscles Cardio Common normals: regular rate and regular rhythm GI Common normals: Normal to inspection, nondistended, normoactive bowel sounds present Extremity Common normals: normal to inspection, full ROM (Somewhat weak compared to baseline) and no clubbing, cyanosis or edema Discharge Plan Discharge Disposition: Home, Self-Care Condition: Good Discharge Medications: Continued aripiprazole 5 mg tablet 5 mg PO .QD lamotrigine 25 mg tablet 25 mg PO QAM sertraline 50 mg tablet 50 mg PO QAM trazodone 100 mg tablet 100 mg PO DAILY escitalopram oxalate 20 mg tablet 20 mg PO DAILY furosemide 40 mg tablet 40 mg PO DAILY naproxen [EC-Naprosyn] 500 mg tablet,delayed release (DR/EC) 500 mg PO Q12H lisinopril 10 mg tablet 10 mg PO DAILY tizanidine 4 mg capsule 4 mg PO BID PRN (Reason: muscle spasticity) albuterol sulfate 90 mcg/actuation HFA aerosol inhaler 1 inh inhalation Q4H PRN (Reason: shortness of breath or wheezing) aspirin [Berta Low Dose Aspirin] 81 mg tablet,delayed release (DR/EC) 81 mg PO DAILY Print Language: French Forms: Portal Instructions Discharge Date/Time: 04/30/24 11:10
--- NOTE | 2024-05-02 14:28 | CM.DCFOLLOWU ---
Pt returned to ER
== END 2024-04-30 11:10 | disposition home or self-care (01) ==
LOC: ER 21:10 → MS 21:51
PROVIDERS: Registered Nurse; Admitting Provider Family Medicine; Emergency Provider Emergency Medicine; Visit Provider Family Medicine
DX: R20.2 Paresthesia of skin (principal); R53.1 Weakness; R00.0 Tachycardia, unspecified; Z95.1 Presence of aortocoronary bypass graft; Z59.00 Homelessness unspecified; I10 Essential (primary) hypertension; Z91.81 History of falling; Z59.9 Problem related to housing and economic circumstances, unspecified; F17.200 Nicotine dependence, unspecified, uncomplicated
CPT/HCPCS: 36415; 71045; 80048; 80053; 80076; 81001; 84443; 85025; 93005; 97162; 97165; 97530; 99285; G0378

== ENCOUNTER 2024-05-02 10:39 | Emergency (ER) | payer MEDICARE, MEDICAID, SELFPAY ==
[2024-05-02 10:42] VITALS: BP 142/65; PULSE 78; TEMP 36.4; O2SAT 98; BMI 23.0
--- NOTE | 2024-05-02 11:13 | ECG_ITS ---
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
--- NOTE | 2024-05-02 11:15 | ED.GENADUL1 ---
HPI HPI - General Adult General Chief complaint: Weakness Stated complaint: FALL Time Seen by Provider: 05/02/24 10:53 Source: patient Mode of arrival: ambulance Limitations: physical limitation History of Present Illness HPI narrative: 78-year-old male presented to the emergency department for leg weakness. The patient presented by ambulance from the hot where he is staying. The patient had a recent admission to this hospital and was seen by physical therapy and high school social studies tutor. Shortly after arrival he called the [facility] hotline and told them that he was going to shoot himself. Related Data Home Medications ?Medication ?Instructions ?Recorded ?Confirmed albuterol sulfate 90 mcg/actuation 1 inh inhalation Q4H PRN shortness 04/08/24 04/29/24 aerosol inhaler of breath or wheezing escitalopram oxalate 20 mg tablet 20 mg PO DAILY 04/08/24 04/29/24 furosemide 40 mg tablet 40 mg PO DAILY 04/08/24 04/29/24 lisinopril 10 mg tablet 10 mg PO DAILY 04/08/24 04/29/24 naproxen 500 mg tablet,delayed 500 mg PO Q12H 04/08/24 04/29/24 release (EC-Naprosyn) tizanidine 4 mg capsule 4 mg PO BID PRN muscle spasticity 04/08/24 04/29/24 trazodone 100 mg tablet 100 mg PO DAILY 04/08/24 04/29/24 aspirin 81 mg tablet,delayed 81 mg PO DAILY 04/09/24 04/29/24 release (Berta Low Dose Aspirin) aripiprazole 5 mg tablet 5 mg PO .QD 04/29/24 04/29/24 lamotrigine 25 mg tablet 25 mg PO QAM 04/29/24 04/29/24 sertraline 50 mg tablet 50 mg PO QAM 04/29/24 04/29/24 Allergies Allergy/AdvReac Type Severity Reaction Status Date / Time doxycycline (From Vibramycin) AdvReac Severe Confusion Verified 05/02/24 10:47 methylprednisolone (From AdvReac Severe Confusion Verified 05/02/24 10:47 Medrol) oxycodone (From OxyContin) AdvReac Severe Confusion Verified 05/02/24 10:47 procaine (From Novocain) AdvReac Severe pass out Verified 05/02/24 10:47 nitroglycerin AdvReac Mild Rash Verified 05/02/24 10:47 Opioid HPI Opioid Management Most Recent Opioid Data: Last Pain Scale 10 05/02/24 11:36 05/02/24 Last Pain Assessment 04/30/24 10:00 Last ORT Total Score 6 04/28/24 21:57 04/28/24 Last ORT Risk Category Moderate Risk 04/28/24 21:57 04/28/24 Ur Phencyclidine Scrn Negative (NEGATIVE) 04/08/24 17:15 04/08/24 Review of Systems ROS Narrative A ten point review of systems is negative except as noted above. [facility] Medical History Acute exacerbation of COPD with asthma ?J44.1 - Chronic obstructive pulmonary disease with (acute) exacerbation (ICD-10) Chest wall contusion ?S20.219A - Contusion of unspecified front wall of thorax, initial encounter (ICD-10) Dehydration ?E86.0 - Dehydration (ICD-10) Frequent falls ?R29.6 - Repeated falls (ICD-10) Weakness ?R53.1 - Weakness (ICD-10) HTN (hypertension) ?I10 - Essential (primary) hypertension (ICD-10) Bipolar 1 disorder ?F31.9 - Bipolar disorder, unspecified (ICD-10) Myocardial infarct ?I21.9 - Acute myocardial infarction, unspecified (ICD-10) CHF (congestive heart failure) ?I50.9 - Heart failure, unspecified (ICD-10) COPD (chronic obstructive pulmonary disease) ?J44.9 - Chronic obstructive pulmonary disease, unspecified (ICD-10) Chronic insomnia ?F51.04 - Psychophysiologic insomnia (ICD-10) Anxiety ?F41.9 - Anxiety disorder, unspecified (ICD-10) Recurrent depression ?F33.9 - Major depressive disorder, recurrent, unspecified (ICD-10) Chronic bipolar disorder ?F31.9 - Bipolar disorder, unspecified (ICD-10) Surgical History S/P triple vessel bypass ?Z95.1 - Presence of aortocoronary bypass graft (ICD-10) Family History Other Family history of CHF (congestive heart failure) Family history of COPD (chronic obstructive pulmonary disease) Family history of cancer Family history of diabetes mellitus Family history of myocardial infarction Social History (Updated 04/28/24 @ 22:14 by Stephanie Hammonds RN) Within the past year, how often did you have a drink containing alcohol: 2-3 times a week Within the past year, how many standard drinks containing alcohol did you have on a typical day: 3 or 4 Within the past year, how often did you have six or more drinks on one occasion: weekly Total score: 5 Score interpretation: A score of 4 or more indicates drinking is likely to affect patient's safety. Smoking status: Current every day smoker Non-prescribed substance use: denies use Known occupational exposures/hazards: No Highest level of school completed/degree received: 7th grade Little interest or pleasure in doing things: several days Feeling down, depressed, or hopeless: several days Do you think of yourself as: straight/heterosexual Gender Identity: male Exam Narrative Exam Narrative: Nurses note and vital signs reviewed and patient is not hypoxic. General: The patient appears well and in no apparent distress. Patient is resting comfortably on cart. Skin: Warm, dry, no pallor noted. There is no rash noted. Head: Normocephalic, atraumatic Eye: Normal conjunctiva, no drainage Ears, Nose, Mouth, and Throat: oral mucosa is moist. Nares patent. Cardiovascular: Regular Rate and Rhythm Respiratory: Patient is in no distress, no accessory muscle use, lungs are clear to auscultation, no wheezing, rales or rhonchi Back: non-tender GI: Soft and nontender Musculoskeletal: The patient has no evidence of calf tenderness, no pitting edema, symmetrical pulses noted bilaterally Neurological: A&O, normal speech Psychiatric: Cooperative Constitutional Vital Signs, click to edit/add: Last Vital Signs Temp 97.6 F 05/02/24 10:42 Pulse 79 05/02/24 14:44 Resp 20 05/02/24 14:44 BP 179/98 H 05/02/24 14:44 Pulse Ox 98 05/02/24 14:44 O2 Del Method Room Air 05/02/24 14:44 Course Vital Signs Vital signs: Vital Signs Temperature 97.6 F 05/02/24 10:42 Pulse Rate 78 05/02/24 10:42 Respiratory Rate 18 05/02/24 10:42 Blood Pressure 142/65 H 05/02/24 10:42 Pulse Oximetry 98 05/02/24 10:42 Oxygen Delivery Method Room Air 05/02/24 10:42 Temperature 97.6 F 05/02/24 10:42 Pulse Rate 79 05/02/24 14:44 Respiratory Rate 20 05/02/24 14:44 Blood Pressure 179/98 H 05/02/24 14:44 Pulse Oximetry 98 05/02/24 14:44 Oxygen Delivery Method Room Air 05/02/24 14:44 Medical Decision Making MDM Narrative Medical decision making narrative: The laboratory analysis is negative. He is medically cleared and has been cleared by mental health services as well and is being discharged. Differential Diagnosis Differential Diagnosis: Parkinson disease, dehydration, anemia Lab Data Lab results reviewed: Yes I reviewed the patient's lab results Labs: Lab Results 05/02/24 Range/Units 11:29 WBC 7.7 (4.0-11.0) 10^3/uL RBC 3.29 L (4.70-6.10) 10^6/uL Hgb 10.4 L (14.0-18.0) g/dL Hct 31.3 L (42.0-54.0) % MCV 95.1 H (80.0-94.0) fL MCH 31.6 (25.9-34.0) pg MCHC 33.2 (29.9-35.2) g/dL RDW 14.6 (11.0-15.0) % Plt Count 157 (150-450) 10^3/uL MPV 9.5 (9.5-13.5) fL Neut % (Auto) 71.9 (43.0-75.0) % Lymph % (Auto) 14.8 L (20.5-60.0) % Mcmullen % (Auto) 9.3 (1.7-12.0) % Eos % (Auto) 2.1 (0.9-7.0) % Baso % (Auto) 0.3 (0.2-2.0) % Neut # (Auto) 5.5 (1.4-6.5) 10^3/uL Lymph # (Auto) 1.1 L (1.2-3.8) 10^3/uL Mcmullen # (Auto) 0.7 (0.3-0.8) 10^3/uL Eos # (Auto) 0.2 (0.0-0.7) 10^3/uL Baso # (Auto) 0.0 (0.0-0.1) 10^3/uL Abs Immat Gran (auto) 0.12 H (0.00-0.03) 10^3/uL Imm/Tot Granulo (auto) 1.6 H (0.0-0.5) % Sodium 138 (136-145) mmol/L Potassium 3.9 (3.5-5.1) mmol/L Chloride 104 (98-107) mmol/L Carbon Dioxide 26.8 (21.0-32.0) mmol/L Anion Gap 11.1 BUN 17.0 (7.0-18.0) mg/dL Creatinine 0.97 (0.70-1.30) mg/dL Est GFR ( Amer) >60 (>=60 mL/min/1.73m^2) Est GFR (Non-Af Amer) >60 (>=60 mL/min/1.73m^2) BUN/Creatinine Ratio 17.5 Glucose 102 (74-106) mg/dL Calcium 8.2 L (8.5-10.1) mg/dL Salicylates <2.8 (<=19.9) mg/dL Acetaminophen <2.0 L (10.0-30.0) ug/mL Ethanol Quant <3 mg/dL ECG Data Attestation: I personally reviewed and interpreted this ECG as follows: (EKG on my interpretation shows normal sinus rhythm with a rate of 75 and no acute change. Right bundle branch block present) Discharge Plan Discharge Chief Complaint: Weakness Clinical Impression: Poor social situation Patient Disposition: Home, Self-Care Time of Disposition Decision: 15:02 Condition: Good Mode of Transportation: Private Vehicle Prescriptions / Home Meds: No Action aripiprazole 5 mg tablet 5 mg PO .QD lamotrigine 25 mg tablet 25 mg PO QAM sertraline 50 mg tablet 50 mg PO QAM trazodone 100 mg tablet 100 mg PO DAILY escitalopram oxalate 20 mg tablet 20 mg PO DAILY furosemide 40 mg tablet 40 mg PO DAILY naproxen [EC-Naprosyn] 500 mg tablet,delayed release (DR/EC) 500 mg PO Q12H lisinopril 10 mg tablet 10 mg PO DAILY tizanidine 4 mg capsule 4 mg PO BID PRN (Reason: muscle spasticity) albuterol sulfate 90 mcg/actuation HFA aerosol inhaler 1 inh inhalation Q4H PRN (Reason: shortness of breath or wheezing) aspirin [Berta Low Dose Aspirin] 81 mg tablet,delayed release (/EC) 81 mg PO DAILY Print Language: [place]orese Instructions: Parkinson Disease (ED) Referrals: Physician,Non-Staff, MD [Primary Care Provider] - 1 week
[2024-05-02 11:38] LABS: Basophils Percent Auto 0.3 % (0.2-2.0); Eosinophils Absolute Auto 0.2 10^3/uL (0.0-0.7); Eosinophils Percent Auto 2.1 % (0.9-7.0); Hematocrit 31.3 % (42.0-54.0); Hemoglobin 10.4 g/dL (14.0-18.0); Immature Granulocytes Abs Auto 0.12 10^3/uL (0.00-0.03); Immature Granulocytes Pct Auto 1.6 % (0.0-0.5); Lymphocytes Absolute Auto 1.1 10^3/uL (1.2-3.8); Lymphocytes Percent Auto 14.8 % (20.5-60.0); Mean Corpuscular HGB Conc 33.2 g/dL (29.9-35.2); Mean Corpuscular Hemoglobin 31.6 pg (25.9-34.0); Mean Corpuscular Volume 95.1 fL (80.0-94.0); Mean Platelet Volume 9.5 fL (9.5-13.5); Monocytes Absolute Auto 0.7 10^3/uL (0.3-0.8); Monocytes Percent Auto 9.3 % (1.7-12.0); Neutrophils Absolute Auto 5.5 10^3/uL (1.4-6.5); Neutrophils Percent Auto 71.9 % (43.0-75.0); Platelet Count 157 10^3/uL (150-450); Red Blood Count 3.29 10^6/uL (4.70-6.10); Red Cell Distribution Width 14.6 % (11.0-15.0); White Blood Count 7.7 10^3/uL (4.0-11.0)
[2024-05-02 11:58] LABS: Acetaminophen <2.0 ug/mL (10.0-30.0); Anion Gap 11.1; BUN Creatinine Ratio 17.5; Calcium 8.2 mg/dL (8.5-10.1); Carbon Dioxide 26.8 mmol/L (21.0-32.0); Chloride 104 mmol/L (98-107); Estimated GFR (African America >60 (>=60 mL/min/1.73m^2); Estimated GFR (Non-African Ame >60 (>=60 mL/min/1.73m^2); Glucose 102 mg/dL (74-106); Potassium 3.9 mmol/L (3.5-5.1); Salicylate <2.8 mg/dL (<=19.9); Sodium 138 mmol/L (136-145)
[2024-05-02 12:27] LABS: Ethanol <3 mg/dL
[2024-05-02 14:44] VITALS: BP 179/98; PULSE 79; O2SAT 98
== END 2024-05-02 15:23 | disposition home or self-care (01) ==
PROVIDERS: Emergency Provider Emergency Medicine
DX: Z60.8 Other problems related to social environment (principal); Z95.1 Presence of aortocoronary bypass graft; F17.200 Nicotine dependence, unspecified, uncomplicated; R53.1 Weakness
CPT/HCPCS: 36415; 80048; 80179; 80307; 80320; 80329; 81001; 85025; 93005; 99285

== ENCOUNTER 2024-05-09 12:33 | Emergency (ER) | payer MEDICARE, MEDICAID, SELFPAY ==
[2024-05-09 12:36] VITALS: BP 108/59; PULSE 94; TEMP 36.7; O2SAT 94; BMI 23.0
--- NOTE | 2024-05-09 12:51 | ECG_ITS ---
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
[2024-05-09 13:00] VITALS: PULSE 88
[2024-05-09 13:06] LABS: Hematocrit 31.9 % (42.0-54.0); Hemoglobin 10.5 g/dL (14.0-18.0); Mean Corpuscular HGB Conc 32.9 g/dL (29.9-35.2); Mean Corpuscular Hemoglobin 31.9 pg (25.9-34.0); Mean Platelet Volume 9.4 fL (9.5-13.5); Platelet Count 180 10^3/uL (150-450); Red Blood Count 3.29 10^6/uL (4.70-6.10); Red Cell Distribution Width 15.3 % (11.0-15.0)
--- NOTE | 2024-05-09 13:11 | XR_ITS ---
The [address] [address] Patient Name: LEONIDAS MILLER MRN: [id number] date: 1945 Sex: M Assigned Patient Location: ER Current Patient Location: ER Accession/Order Number: [id number] Exam Date: 05/09/2024 13:05 Report Date: 05/09/2024 13:36 At the request of: RIC MAI Procedure: XR chest 1V EXAMINATION: XR chest 1V HISTORY: weakness COMPARISON: 04/28/2024 TECHNIQUE: AP portable FINDINGS: LUNGS: No significant pulmonary parenchymal abnormalities. VASCULATURE: No increased pulmonary vasculature. PLEURA: No pneumothorax, effusion, or pleural thickening. CARDIAC: No cardiomegaly or cardiac silhouette abnormality. Aortic atherosclerosis MEDIASTINUM: No visible mass or adenopathy. Median sternotomy wires. Vein graft markers BONES: No fracture or visible bone lesion. OTHER: Negative. XR/XR chest 1V IMPRESSION: No acute cardiopulmonary process Electronically authenticated by: KENNETH SYED Date: 05/09/2024 13:36
[2024-05-09 13:27] LABS: Anion Gap 9.5; BUN Creatinine Ratio 11.7; Calcium 7.9 mg/dL (8.5-10.1); Chloride 103 mmol/L (98-107); Estimated GFR (African America >60 (>=60 mL/min/1.73m^2); Estimated GFR (Non-African Ame >60 (>=60 mL/min/1.73m^2); Glucose 140 mg/dL (74-106); Potassium 3.5 mmol/L (3.5-5.1); Sodium 142 mmol/L (136-145)
[2024-05-09 13:34] LABS: Band Neutrophils Absolute 0.1 10^3/uL (0.0-0.3); Lymphocytes Absolute Manual 0.36 10^3/uL (1.20-3.80); Monocytes Absolute Manual 0.42 10^3/uL (0.30-0.80)
[2024-05-09 14:39] LABS: Bilirubin Urine NEGATIVE (NEGATIVE); Blood Urine NEGATIVE (NEGATIVE); Clarity Urine CLEAR (CLEAR); Color Urine YELLOW (YELLOW); Glucose Urine UA NEGATIVE (NEGATIVE); Ketones Urine NEGATIVE (NEGATIVE); Leukocyte Esterase Urine NEGATIVE (NEGATIVE); Nitrite Urine NEGATIVE (NEGATIVE); Protein Urine NEGATIVE (NEG/TRACE)
[2024-05-09 14:40] LABS: Urine Microscopic Indicated NO
[2024-05-09] MEDS: ACETAMINOPHEN 325 MG TABLET 650 MG PO (15:21)
--- NOTE | 2024-05-09 16:10 | SWNOTE1 ---
SW had call earlier from ED in regards to pt. SW came down to see pt in ED. Pt came from the warming [facility] in [place]. Pt ran out of money for the hotel in [place]. The crisis team helped him get placed at [facility] in [place]. SW called the crisis mobile team. They voiced someone from [facility] had to fill out paperwork and then someone from the [place] had to go see patient and complete an assessment. This was supposed to happen Monday or Monday. Once this is complete they think he will be able to get in to [place]. SW advised the crisis team that it is likely he will be discharged from ED back to [facility]. They did ask if he has eaten in last few days? Pt voiced he is fasting and has been for 3 days. SW asked why? He stated so he can get in to the [facility]. SW stated that this will not get him in to [facility]. Pt asked SW if SW believed in God? RUDY stated yes. Pt stated he fasted for 40 days. SW expressed to that at this time there is no medical reason to admit pt and that SW can get him back to [facility]. Pt in agreement. RUDY updated PA and doctor.
--- NOTE | 2024-05-09 16:22 | PC.NURSE ---
pt requesting another cup of coffee. ambulation test completed at this time, pt walked good with walker to hallway and back to bed. denies a want for meal tray - states he is fasting for 3 days.
--- NOTE | 2024-05-09 17:50 | ED_ITS ---
HPI HPI - General Adult General Chief complaint: Extremity Problem, Nontraumatic Stated complaint: TROUBLES WALKING Time Seen by Provider: 05/09/24 12:42 Source: patient Mode of arrival: ambulance Limitations: physical limitation History of Present Illness HPI narrative: 78-year-old male to the emergency department chief with leg pain. He reports this has been ongoing for several years. He has neuropathy. He is not currently on any medications for it. He reports his doctor does not listen to him. He reports it hurts when he walks. He uses a walker to ambulate. He has no other complaints at this time. Related Data Home Medications ?Medication ?Instructions ?Recorded ?Confirmed albuterol sulfate 90 mcg/actuation 1 inh inhalation Q4H PRN shortness 04/08/24 05/09/24 aerosol inhaler of breath or wheezing escitalopram oxalate 20 mg tablet 20 mg PO DAILY 04/08/24 05/09/24 furosemide 40 mg tablet 40 mg PO DAILY 04/08/24 05/09/24 lisinopril 10 mg tablet 10 mg PO DAILY 04/08/24 05/09/24 naproxen 500 mg tablet,delayed 500 mg PO Q12H 04/08/24 04/29/24 release (EC-Naprosyn) tizanidine 4 mg capsule 4 mg PO BID PRN muscle spasticity 04/08/24 04/29/24 trazodone 100 mg tablet 100 mg PO DAILY 04/08/24 04/29/24 aspirin 81 mg tablet,delayed 81 mg PO DAILY 04/09/24 05/09/24 release (Berta Low Dose Aspirin) aripiprazole 5 mg tablet 5 mg PO .QD 04/29/24 05/09/24 lamotrigine 25 mg tablet 25 mg PO QAM 04/29/24 05/09/24 sertraline 50 mg tablet 50 mg PO QAM 04/29/24 05/09/24 Previous Rx's ?Medication ?Instructions ?Recorded gabapentin 100 mg capsule 100 mg PO BID #60 caps 05/09/24 Allergies Allergy/AdvReac Type Severity Reaction Status Date / Time doxycycline (From Vibramycin) AdvReac Severe Confusion Verified 05/09/24 12:36 methylprednisolone (From AdvReac Severe Confusion Verified 05/09/24 12:36 Medrol) oxycodone (From OxyContin) AdvReac Severe Confusion Verified 05/09/24 12:36 procaine (From Novocain) AdvReac Severe pass out Verified 05/09/24 12:36 nitroglycerin AdvReac Mild Rash Verified 05/09/24 12:36 Opioid HPI Opioid Management Most Recent Opioid Data: Last Pain Scale 10 05/02/24 11:36 05/02/24 Last ORT Total Score 6 04/28/24 21:57 04/28/24 Last ORT Risk Category Moderate Risk 04/28/24 21:57 04/28/24 Ur Phencyclidine Scrn Negative (NEGATIVE) 04/08/24 17:15 12/0 01/22 Review of Systems ROS Status of ROS 10 or more systems reviewed and unremark able except as noted in history and below [facility] Medical History (Updated 05/09/24 @ 17:57 by Chang Malone MD) Poor social situation ?Z60.9 - Problem related to social environment, unspecified (ICD-10) Acute exacerbation of COPD with asthma ?J44.1 - Chronic obstructive pulmonary disease with (acute) exacerbation (ICD-10) Chest wall contusion ?S20.219A - Contusion of unspecified front wall of thorax, initial encounter (ICD-10) Dehydration ?E86.0 - Dehydration (ICD-10) Frequent falls ?R29.6 - Repeated falls (ICD-10) Weakness ?R53.1 - Weakness (ICD-10) HTN (hypertension) ?I10 - Essential (primary) hypertension (ICD-10) Bipolar 1 disorder ?F31.9 - Bipolar disorder, unspecified (ICD-10) Myocardial infarct ?I21.9 - Acute myocardial infarction, unspecified (ICD-10) CHF (congestive heart failure) ?I50.9 - Heart failure, unspecified (ICD-10) COPD (chronic obstructive pulmonary disease) ?J44.9 - Chronic obstructive pulmonary disease, unspecified (ICD-10) Chronic insomnia ?F51.04 - Psychophysiologic insomnia (ICD-10) Anxiety ?F41.9 - Anxiety disorder, unspecified (ICD-10) Recurrent depression ?F33.9 - Major depressive disorder, recurrent, unspecified (ICD-10) Chronic bipolar disorder ?F31.9 - Bipolar disorder, unspecified (ICD-10) Surgical History S/P triple vessel bypass ?Z95.1 - Presence of aortocoronary bypass graft (ICD-10) Family History Other Family history of CHF (congestive heart failure) Family history of COPD (chronic obstructive pulmonary disease) Family history of cancer Family history of diabetes mellitus Family history of myocardial infarction Social History (Updated 04/28/24 @ 22:14 by Stephanie Hammonds RN) Within the past year, how often did you have a drink containing alcohol: 2-3 times a week Within the past year, how many standard drinks containing alcohol did you have on a typical day: 3 or 4 Within the past year, how often did you have six or more drinks on one occasion: weekly Total score: 5 Score interpretation: A score of 4 or more indicates drinking is likely to affect patient's safety. Smoking status: Current every day smoker Non-prescribed substance use: denies use Known occupational exposures/hazards: No Highest level of school completed/degree received: 7th grade Little interest or pleasure in doing things: not at all Feeling down, depressed, or hopeless: not at all Do you think of yourself as: straight/heterosexual Gender Identity: male Exam Narrative Exam Narrative: VITALS: I have reviewed the triage vital signs. GENERAL: Elderly adult male in no distress NEURO: Alert and oriented. Moves all extremities. Face is symmetric and expressive. EYES: PERRL. No scleral icterus or conjunctival injection. No discharge. HENT: Normocephalic, atraumatic. Hearing is grossly intact. Nares grossly patent and without discharge. Mucous membranes moist. NECK: No JVD. Patient moves neck without restriction. CARDIO: Rhythm regular. Normal rate. No murmur, rub, or gallop. Pulses equal bilaterally in the upper and lower extremity. No lower extremity edema. PULM: Lungs clear to auscultation in all alvarado. No wheezes, rales, or rhonchi. No conversational dyspnea. No splinting, stridor, or accessory muscle use. GI/: Abdomen is soft and non-tender. Normoactive bowel sounds. EXTREMITIES: Symmetric muscle bulk. No joint swelling. No clubbing, cyanosis, or deformity. SKIN: Warm and dry. Normal turgor. No rash or lesions appreciated. PSYCH: Mood, affect, and interaction is appropriate to the setting. Constitutional Vital Signs, click to edit/add: Last Vital Signs Temp 98.1 F 05/09/24 12:36 Pulse 88 05/09/24 13:00 Resp 18 05/09/24 12:36 BP 108/59 05/09/24 12:36 Pulse Ox 94 L 05/09/24 12:36 O2 Del Method Room Air 05/09/24 12:36 Course Vital Signs Vital signs: Vital Signs Temperature 98.1 F 05/09/24 12:36 Pulse Rate 94 H 05/09/24 12:36 Respiratory Rate 18 05/09/24 12:36 Blood Pressure 108/59 05/09/24 12:36 Pulse Oximetry 94 L 05/09/24 12:36 Oxygen Delivery Method Room Air 05/09/24 12:36 Temperature 98.1 F 05/09/24 12:36 Pulse Rate 88 05/09/24 13:00 Respiratory Rate 18 05/09/24 12:36 Blood Pressure 108/59 05/09/24 12:36 Pulse Oximetry 94 L 05/09/24 12:36 Oxygen Delivery Method Room Air 05/09/24 12:36 Medical Decision Making MDM Narrative Medical decision making narrative: Medical screening exam was performed. History and exam do not suggest any acute medical emergency. Screening labs are ordered and are unremarkable. Patient is pleasant but very manipulative. He is currently homeless. He lives in [place]. He is frustrated with [facility] because they do not meet his demands/needs so he is now requesting to come to our facility per his report. He was prescribed starting dose gabapentin for his neuropathy. He is recommended to follow-up with his primary care doctor. He is able to ambulate without any difficulty in our emergency department. Unfortunately he has no way back to [place] now that he was transported here at his request. He does not have money for a cab ride. Hospital transport is no longer running at this hour. Social work saw the patient. He is currently working with crisis team trying to place him in assisted living. The patient was discharged back to his homeless half-way. Medical Records Medical records reviewed: Yes I reviewed the patient's medical records Lab Data Lab results reviewed: Yes I reviewed the patient's lab results Labs: Lab Results 05/09/24 05/09/24 Range/Units 13:00 14:25 WBC 6.0 (4.0-11.0) 10^3/uL RBC 3.29 L (4.70-6.10) 10^6/uL Hgb 10.5 L (14.0-18.0) g/dL Hct 31.9 L (42.0-54.0) % MCV 97.0 H (80.0-94.0) fL MCH 31.9 (25.9-34.0) pg MCHC 32.9 (29.9-35.2) g/dL RDW 15.3 H (11.0-15.0) % Plt Count 180 (150-450) 10^3/uL MPV 9.4 L (9.5-13.5) fL Seg Neuts % (Manual) 85.0 H (43.0-75.0) Band Neutrophils % 2.0 (0-5) % Lymphocytes % (Manual) 6.0 L (20.5-60.0) % Monocytes % (Manual) 7.0 (1.7-12.0) % Eosinophils % (Manual) 0.0 L (0.9-7.0) % Basophils % (Manual) 0.0 L (0.2-2.0) % Neutrophils # (Manual) 5.10 (1.4-6.5) 10^3/uL Band Neutrophils # 0.1 (0.0-0.3) 10^3/uL Lymphocytes # (Manual) 0.36 L (1.20-3.80) 10^3/uL Monocytes # (Manual) 0.42 (0.30-0.80) 10^3/uL Eosinophils # (Manual) 0.00 (0.00-0.70) 10^3/uL Basophils # (Manual) 0.00 (0.00-0.10) 10^3/uL Sodium 142 (136-145) mmol/L Potassium 3.5 (3.5-5.1) mmol/L Chloride 103 (98-107) mmol/L Carbon Dioxide 33.0 H (21.0-32.0) mmol/L Anion Gap 9.5 BUN 12.0 (7.0-18.0) mg/dL Creatinine 1.03 (0.70-1.30) mg/dL Est GFR ( Amer) >60 (>=60 mL/min/1.73m^2) Est GFR (Non-Af Amer) >60 (>=60 mL/min/1.73m^2) BUN/Creatinine Ratio 11.7 Glucose 140 H (74-106) mg/dL Calcium 7.9 L (8.5-10.1) mg/dL Troponin I High Sens 7.0 (4.0-76.1) pg/mL Urine Color Yellow (YELLOW) Urine Clarity Clear (CLEAR) Urine pH 6.0 (5.0-9.0) Ur Specific Varina 1.020 (1.005-1.025) Urine Protein Negative (NEG/TRACE) mg/dL Urine Glucose (UA) Negative (NEGATIVE) mg/dL Urine Ketones Negative (NEGATIVE) mg/dL Urine Occult Blood Negative (NEGATIVE) Urine Nitrite Negative (NEGATIVE) Urine Bilirubin Negative (NEGATIVE) Urine Urobilinogen 1.0 (0.2-1.0) EU/dL Ur Leukocyte Esterase Negative (NEGATIVE) Discharge Plan Discharge Chief Complaint: Extremity Problem, Nontraumatic Clinical Impression: Encounter for medical screening examination, Neuropathy Patient Disposition: Home, Self-Care Time of Disposition Decision: 16:25 Condition: Good Mode of Transportation: Private Vehicle Prescriptions / Home Meds: New gabapentin 100 mg capsule 100 mg PO BID Qty: 60 0RF No Action aripiprazole 5 mg tablet 5 mg PO .QD lamotrigine 25 mg tablet 25 mg PO QAM sertraline 50 mg tablet 50 mg PO QAM trazodone 100 mg tablet 100 mg PO DAILY escitalopram oxalate 20 mg tablet 20 mg PO DAILY furosemide 40 mg tablet 40 mg PO DAILY naproxen [EC-Naprosyn] 500 mg tablet,delayed release (DR/EC) 500 mg PO Q12H lisinopril 10 mg tablet 10 mg PO DAILY tizanidine 4 mg capsule 4 mg PO BID PRN (Reason: muscle spasticity) albuterol sulfate 90 mcg/actuation HFA aerosol inhaler 1 inh inhalation Q4H PRN (Reason: shortness of breath or wheezing) aspirin [Berta Low Dose Aspirin] 81 mg tablet,delayed release (DR/EC) 81 mg PO DAILY Print Language: [place]an Additional Instructions: Call the office of your primary care doctor to arrange for follow-up within the above-stated timeframe. Your ED visit was focused on your acute issue and does not replace primary care. You should review your labs, imaging, and diagnoses from this ED visit with your primary care physician. There may be non-emergent/ incidental findings that need further evaluation. You should review your vital signs including blood pressure with your PCP. If you were prescribed medications you should discuss possible side-effects and drug interactions with your pharmacist. Call 911 or go to the nearest Emergency Department if you develop any new or worsening symptoms. Referrals: Physician,Non-Staff, MD [Primary Care Provider] - 1 week
--- NOTE | 2024-05-10 13:23 | SWNOTE1 ---
SW had a call last night from the ED. The facility pt came from can't accept him back. SW called 211 and attempted to get pt placed, but no shelters had openings. RUDY spoke with [facility] in [place] and they had 1 bed open but advised against sending pt because it will likely fill before he arrived. SW called the ED back and let them know there is no openings anywhere. SW stopped down to see pt in ED lobby. He was dischared from ED but stayed the night in the lobby. Case management went and spoke with pt and he is aware that we are working on placement. SW called and left 2 voicemails for [facility] in [place]. SW did get a call back and they need to speak with pt. RUDY also spoke with Liza at [facility] and they are just waiting for the PASR to be approved. RUDY then called and spoke with Dennys at [facility] and they did do assessment on 04/15/24. They did get a call yesterday from the state and someone should be finishing up the review soon. Once the review is completed and approved pt can admit to [facility]. RUDY let Dennys know that SW will let her know where pt is placed. Pt completed assessment over the phone with [facility] in [place] and they are able to accept. Pt has to arrive after 6 and before 8. RUDY spoke with director of ED and advised SW to call administration. [facility] will be closed by then. Possible for security to transport? RUDY called and spoke to Nguyen, waiting for call back with approval. The crisis team was down in ED with pt and they are aware of the plan for pt.
--- NOTE | 2024-05-10 13:47 | SWNOTE1 ---
RUDY received a call back from [facility] for security to take pt to homeless [facility] in [place]. RUDY let Danae know and she advised to let Jacki know. RUDY called Jacki Pearce and provided address and she will call security to update.
== END 2024-05-09 19:11 | disposition home or self-care (01) ==
PROVIDERS: Emergency Provider Student in an Organized Health Care Education/Training Program
DX: G62.9 Polyneuropathy, unspecified (principal); Z95.1 Presence of aortocoronary bypass graft; F17.200 Nicotine dependence, unspecified, uncomplicated; Z59.00 Homelessness unspecified
CPT/HCPCS: 36415; 71045; 80048; 81003; 84484; 85007; 85027; 93005; 99285

== ENCOUNTER 2024-07-18 20:22 | Emergency (ER) | payer MEDICARE, MEDICAID, SELFPAY ==
[2024-07-18 20:28] VITALS: BP 96/58; PULSE 103; TEMP 36.8; O2SAT 89; BMI 23.7
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
[2024-07-18 21:13] VITALS: O2SAT 89
[2024-07-18] MEDS: ACETAMINOPHEN 325 MG TABLET 650 MG PO (21:32)
[2024-07-19 01:03] VITALS: BP 126/60; PULSE 81; O2SAT 94
== END 2024-07-19 01:51 | disposition home or self-care (01) ==
PROVIDERS: Emergency Provider Emergency Medicine
DX: Z04.89 Encounter for examination and observation for other specified reasons (principal); Y04.8XXA Assault by other bodily force, initial encounter; G62.9 Polyneuropathy, unspecified; Z87.891 Personal history of nicotine dependence; J44.9 Chronic obstructive pulmonary disease, unspecified; Z95.1 Presence of aortocoronary bypass graft; M54.2 Cervicalgia; R20.0 Anesthesia of skin
CPT/HCPCS: 70450; 72125; 72131; 73130; 73502; 99284

== ENCOUNTER 2024-09-18 22:14 | Emergency (ER) | payer MEDICARE, MEDICAID, SELFPAY ==
[2024-09-18] VITALS (7 sets, daily range): BP systolic 75–93; BP diastolic 46–53; PULSE 99; TEMP 36.5; O2SAT 88–91; BMI 25.6
--- NOTE | 2024-09-18 22:26 | ECG_ITS ---
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 Measurements Intervals [place] Rate: 94 P: 53 PA: 146 QRS: 0 QRSD: 130 T: 25 QT: 374 QTc: 426 Interpretive Statements 1100 Sinus rhythm 2450 Right bundle branch block 9150 abnormal ECG Compared to ECG 05/09/2024 12:39:58 No significant changes Electronically Signed On 09-19-2024 7:04:26 EDT by AMY COULTER M.D.
--- NOTE | 2024-09-18 22:56 | ED.NAVMDI1 ---
HPI - Nausea/Vomiting/Diarrhea General Chief complaint: Nausea/Vomiting/Diarrhea Stated complaint: VOMITING BLOOD Time Seen by Provider: 09/18/24 22:21 Source: patient Source comment: Pt is from [facility] in [place]. 911 called due to sudden onset of N/V and epigastric pain. 5-6 episodes of red/brown emesis Mode of arrival: ambulance History of Present Illness HPI Narrative: This 79-year-old male who has had an abdominal surgery due to an ulcer in the past at [facility] is brought to the emergency department by EMS from the [facility] where he currently resides for evaluation of 3 episodes of hematemesis. The patient was recently started on Levaquin and is on Naprosyn. He states he is being treated for pneumonia. He has a harsh cough. He has epigastric abdominal pain. He denies any bloody stool or diarrhea. Upon arrival he was noted to be hypotensive with a pulse of 99 and blood pressure 76/46. He has dried blood in his mouth. He is not actively vomiting upon arrival after being given Zofran by EMS. Related Data Home Medications ?Medication ?Instructions ?Recorded ?Confirmed albuterol sulfate 90 mcg/actuation 1 inh inhalation Q4H PRN shortness 04/08/24 05/09/24 aerosol inhaler of breath or wheezing escitalopram oxalate 20 mg tablet 20 mg PO DAILY 04/08/24 05/09/24 furosemide 40 mg tablet 40 mg PO DAILY 04/08/24 05/09/24 lisinopril 10 mg tablet 10 mg PO DAILY 04/08/24 05/09/24 naproxen 500 mg tablet,delayed 500 mg PO Q12H 04/08/24 04/29/24 release (EC-Naprosyn) tizanidine 4 mg capsule 4 mg PO BID PRN muscle spasticity 04/08/24 04/29/24 trazodone 100 mg tablet 100 mg PO DAILY 04/08/24 04/29/24 aspirin 81 mg tablet,delayed 81 mg PO DAILY 04/09/24 05/09/24 release (Berta Low Dose Aspirin) aripiprazole 5 mg tablet 5 mg PO .QD 04/29/24 05/09/24 lamotrigine 25 mg tablet 25 mg PO QAM 04/29/24 05/09/24 sertraline 50 mg tablet 50 mg PO QAM 04/29/24 05/09/24 Previous Rx's ?Medication ?Instructions ?Recorded gabapentin 100 mg capsule 100 mg PO BID #60 caps 05/09/24 Allergies Allergy/AdvReac Type Severity Reaction Status Date / Time doxycycline (From Vibramycin) AdvReac Severe Confusion Verified 09/18/24 22:25 methylprednisolone (From AdvReac Severe Confusion Verified 09/18/24 22:25 Medrol) oxycodone (From OxyContin) AdvReac Severe Confusion Verified 09/18/24 22:25 procaine (From Novocain) AdvReac Severe pass out Verified 09/18/24 22:25 Review of Systems ROS Status of ROS 10 or more systems reviewed and unremarkable except as noted in history and below [facility] Medical History (Updated 09/19/24 @ 00:32 by Lisa Balderrama MD) Poor social situation ?Z60.9 - Problem related to social environment, unspecified (ICD-10) Acute exacerbation of COPD with asthma ?J44.1 - Chronic obstructive pulmonary disease with (acute) exacerbation (ICD-10) Chest wall contusion ?S20.219A - Contusion of unspecified front wall of thorax, initial encounter (ICD-10) Dehydration ?E86.0 - Dehydration (ICD-10) Frequent falls ?R29.6 - Repeated falls (ICD-10) Weakness ?R53.1 - Weakness (ICD-10) HTN (hypertension) ?I10 - Essential (primary) hypertension (ICD-10) Bipolar 1 disorder ?F31.9 - Bipolar disorder, unspecified (ICD-10) Myocardial infarct ?I21.9 - Acute myocardial infarction, unspecified (ICD-10) CHF (congestive heart failure) ?I50.9 - Heart failure, unspecified (ICD-10) COPD (chronic obstructive pulmonary disease) ?J44.9 - Chronic obstructive pulmonary disease, unspecified (ICD-10) Chronic insomnia ?F51.04 - Psychophysiologic insomnia (ICD-10) Anxiety ?F41.9 - Anxiety disorder, unspecified (ICD-10) Recurrent depression ?F33.9 - Major depressive disorder, recurrent, unspecified (ICD-10) Chronic bipolar disorder ?F31.9 - Bipolar disorder, unspecified (ICD-10) Surgical History S/P triple vessel bypass ?Z95.1 - Presence of aortocoronary bypass graft (ICD-10) Family History Other Family history of CHF (congestive heart failure) Family history of COPD (chronic obstructive pulmonary disease) Family history of cancer Family history of diabetes mellitus Family history of myocardial infarction Social History Within the past year, how often did you have a drink containing alcohol: 2-3 times a week Within the past year, how many standard drinks containing alcohol did you have on a typical day: 3 or 4 Within the past year, how often did you have six or more drinks on one occasion: weekly Total score: 5 Score interpretation: A score of 4 or more indicates drinking is likely to affect patient's safety. Smoking status: Current every day smoker Non-prescribed substance use: denies use Known occupational exposures/hazards: No Highest level of school completed/degree received: 7th grade Little interest or pleasure in doing things: not at all Feeling down, depressed, or hopeless: not at all Do you think of yourself as: straight/heterosexual Gender Identity: male Exam Narrative Exam Narrative: Vital signs and Nursing Notes reviewed: Patient is afebrile with a normal pulse, blood pressure is low at 76/46, he is hypoxic with pulse ox of 91% on room air General: Awake, alert, oriented, no acute distress, lying comfortably on the stretcher HEENT: Normocephalic atraumatic, mucous membranes are moist and pink, eyes are clear, conjunctiva are mildly pale, dried blood noted on his teeth and tongue Neck: Supple, no meningeal signs, no anterior or posterior cervical lymphadenopathy Chest: Coarse breath sounds with right upper lobe rhonchi, no rales appreciated, no accessory muscle use noted CVS: Regular rate and rhythm S1-S2, no murmurs rubs or gallops, pulses are brisk and equal bilaterally ABD: Soft, nondistended, epigastric abdominal tenderness, large healed midline abdominal incision noted Extremities: Moving all extremities, no lower extremity tenderness or swelling noted, negative Homans' sign, pulses are brisk and equal bilaterally Skin: Normal in appearance without rash,pallor, petechiae or purpura Neuro: No focal deficits Constitutional Vital Signs, click to edit/add: Last Vital Signs Temp 97.7 F 09/18/24 22:18 Pulse 99 H 09/18/24 22:18 Resp 20 09/18/24 22:18 BP 93/52 09/19/24 00:45 Pulse Ox 88 L 09/18/24 22:20 O2 Del Method Room Air 09/18/24 22:20 O2 Flow Rate 2 09/18/24 22:20 Course Vital Signs Vital signs: Vital Signs Temperature 97.7 F 09/18/24 22:18 Pulse Rate 99 H 09/18/24 22:18 Respiratory Rate 20 09/18/24 22:18 Blood Pressure 76/46 L 09/18/24 22:18 Pulse Oximetry 91 L 09/18/24 22:18 Oxygen Delivery Method Room Air 09/18/24 22:18 Temperature 97.7 F 09/18/24 22:18 Pulse Rate 99 H 09/18/24 22:18 Respiratory Rate 20 09/18/24 22:18 Blood Pressure 93/52 09/19/24 00:45 Pulse Oximetry 88 L 09/18/24 22:20 Oxygen Delivery Method Room Air 09/18/24 22:20 Oxygen Delivery Flow Rate 2 09/18/24 22:20 MDM - Nausea/Vomiting/Diarrhea MDM Narrative Medical decision making narrative: This 79-year-old male with a history of an ulcer in the past who had a surgical procedure years ago at [facility] and is currently in the extended care facility where he is recently been started on Levaquin and is taking daily doses of a leave is brought to the emergency department for evaluation of 3 episodes of hematemesis. Symptoms started just prior to arrival. He had 3 episodes of bloody vomitus. EMS gave him Zofran and his vomiting had improved but he still had some epigastric abdominal tenderness. The patient has a history of heart disease and had a CABG procedure in the past. Upon arrival an EKG was ordered that is a sinus rhythm with a right bundle branch block at 94 bpm. An IV had been established by EMS. He was given IV fluids, Pepcid and Protonix. Upon arrival his blood pressure was noted to be low at 76/46 with a pulse of 99 and pulse ox of 88% on room air. He has not had any additional episodes of vomiting while in the emergency department. Routine labs are reviewed. His white count is elevated at 16. Hemoglobin at this time is 12. Platelet count is normal at 209. Lactic acid is elevated at 4.2. BUN is 45 and creatinine is 2.7 indicating some degree of acute kidney injury likely related to the acute bleeding. His last BUN and creatinine done in May of this year was normal. X-ray of the chest was ordered due to the history of heart disease and a recent diagnosis of pneumonia. The chest x-ray was reviewed by radiology and shows a mildly enlarged heart size with hypoinflated lungs minimal atelectasis at the lung bases sternotomy and prior CABG with no free air in the upper abdomen. As we do not have any general surgery or GI coverage at this time he will require transfer to a higher level of care. The patient requested to be transferred to [facility]. Call was placed to [facility] to initiate this transfer. Case discussed with Dr Lu at [facility] and he is accepted for transfer to the progressive unit. Repeat lactic acid and CBC was ordered. Lactic acid has improved from 4.2-1.1. The patient's hemoglobin dropped from 12-11.3. He has remained moderately hypotensive while in the emergency department without significant tachycardia. He has not had any additional episodes of hematemesis. Blood pressure tried to transfer was 118/59. He remains awake and alert without any additional episodes of hematemesis. Medical Records Attestation: I reviewed the patient's medical records. Lab Data Attestation: I reviewed the patient's lab results. Labs: Lab Results 09/18/24 09/19/24 Range/Units 22:30 00:39 WBC 16.5 H 15.3 H (4.0-11.0) 10^3/uL RBC 3.95 L 3.86 L (4.70-6.10) 10^6/uL Hgb 12.0 L 11.3 L (14.0-18.0) g/dL Hct 36.5 L 34.8 L (42.0-54.0) % MCV 92.4 90.2 (80.0-94.0) fL MCH 30.4 29.3 (25.9-34.0) pg MCHC 32.9 32.5 (29.9-35.2) g/dL RDW 17.1 H 16.9 H (11.0-15.0) % Plt Count 209 184 (150-450) 10^3/uL MPV 9.6 9.7 (9.5-13.5) fL Neut % (Auto) 71.9 (43.0-75.0) % Lymph % (Auto) 13.1 L (20.5-60.0) % [place] % (Auto) 9.8 (1.7-12.0) % Eos % (Auto) 3.6 (0.9-7.0) % Baso % (Auto) 0.3 (0.2-2.0) % Neut # (Auto) 11.0 H (1.4-6.5) 10^3/uL Lymph # (Auto) 2.0 (1.2-3.8) 10^3/uL [place] # (Auto) 1.5 H (0.3-0.8) 10^3/uL Eos # (Auto) 0.6 (0.0-0.7) 10^3/uL Baso # (Auto) 0.1 (0.0-0.1) 10^3/uL Abs Immat Gran (auto) 0.20 H (0.00-0.03) 10^3/uL Seg Neuts % (Manual) 77.0 H (43.0-75.0) Lymphocytes % (Manual) 10.0 L (20.5-60.0) % Atypical Lymphs % (Man) 4.0 % Monocytes % (Manual) 7.0 (1.7-12.0) % Eosinophils % (Manual) 1.0 (0.9-7.0) % Basophils % (Manual) 1.0 (0.2-2.0) % Imm/Tot Granulo (auto) 1.3 H (0.0-0.5) % Neutrophils # (Manual) 12.70 H (1.4-6.5) 10^3/uL Lymphocytes # (Manual) 1.65 (1.20-3.80) 10^3/uL Abs Atypical Lymphs Man 0.66 Monocytes # (Manual) 1.15 H (0.30-0.80) 10^3/uL Eosinophils # (Manual) 0.16 (0.00-0.70) 10^3/uL Basophils # (Manual) 0.16 H (0.00-0.10) 10^3/uL PT 10.6 (9.0-11.6) sec INR 1.00 Sodium 137 (136-145) mmol/L Potassium 3.4 L (3.5-5.1) mmol/L Chloride 100 (98-107) mmol/L Carbon Dioxide 25.8 (21.0-32.0) mmol/L Anion Gap 14.6 BUN 45.0 H (7.0-18.0) mg/dL Creatinine 2.17 H (0.70-1.30) mg/dL Est GFR ( Amer) 36 L (>=60 mL/min/1.73m^2) Est GFR (Non-Af Amer) 30 L (>=60 mL/min/1.73m^2) BUN/Creatinine Ratio 20.7 Glucose 96 (74-106) mg/dL Lactate 4.2 H* 1.1 (0.4-2.0) mmol/L Calcium 8.4 L (8.5-10.1) mg/dL Total Bilirubin 0.5 (0.2-1.0) mg/dL AST 14 L (15-37) U/L ALT 10 L (16-63) U/L Alkaline Phosphatase 60 (46-116) U/L Troponin I High Sens 43.4 (4.0-76.1) pg/mL Total Protein 6.3 L (6.4-8.2) g/dL Albumin 3.4 (3.4-5.0) g/dL Globulin 2.9 g/dL Albumin/Globulin Ratio 1.2 Blood Type O Positive Antibody Screen Negative ECG Data Attestation: I personally reviewed and interpreted this ECG as follows: (Sinus rhythm at 94 bpm, right bundle branch block, no acute ST segment elevation or T wave inversion) Discharge Plan Discharge Chief Complaint: Nausea/Vomiting/Diarrhea Clinical Impression: Acute upper gastrointestinal bleeding, Acute kidney injury Patient Disposition: [facility] Time of Disposition Decision: 00:30 Discharge Location: [facility] Condition: Fair Mode of Transportation: EMS Critical Care Time Critical Care Time Critical Care Time: Yes Total Critical Care Time: 35 Attestation: This 79-year-old male with a history of heart disease and gastric ulcer requiring surgery in the past presents for evaluation of upper GI bleeding and hypotension. Due to the high probability of sudden and clinically significant deterioration in his condition he required the highest level of my preparedness to intervene urgently. I provided critical care time including documentation time medication orders and management reevaluation vital sign assessment, ordering and interpretation of lab tests, ordering of reviewing of x-ray studies and consultation with tertiary care center for transfer. Aggregate critical care time is 35 minutes including time which I only was engaged in work directly related to his care and did not include time spent treating other patients simultaneously
[2024-09-18] MEDS: 0.9 % SODIUM CHLORIDE 1,000 ML 1000 ML IV (23:00)
[2024-09-18] MEDS: FAMOTIDINE/PF 20 MG/2 ML VIAL IV (23:01)
[2024-09-18] MEDS: PANTOPRAZOLE SODIUM 40 MG VIAL IV (23:02)
[2024-09-18 23:10] LABS: Hematocrit 36.5 % (42.0-54.0); Mean Corpuscular HGB Conc 32.9 g/dL (29.9-35.2); Mean Corpuscular Hemoglobin 30.4 pg (25.9-34.0); Mean Corpuscular Volume 92.4 fL (80.0-94.0); Mean Platelet Volume 9.6 fL (9.5-13.5); Platelet Count 209 10^3/uL (150-450); Red Blood Count 3.95 10^6/uL (4.70-6.10); Red Cell Distribution Width 17.1 % (11.0-15.0); White Blood Count 16.5 10^3/uL (4.0-11.0)
[2024-09-18 23:24] LABS: Lymphocytes Absolute Manual 1.65 10^3/uL (1.20-3.80); Prothrombin Time 10.6 sec (9.0-11.6)
[2024-09-18 23:25] LABS: Atypical Lymphocytes Abs Man 0.66; Basophils Abs Manual 0.16 10^3/uL (0.00-0.10); Eosinophils Absolute Manual 0.16 10^3/uL (0.00-0.70); Monocytes Absolute Manual 1.15 10^3/uL (0.30-0.80)
[2024-09-18 23:27] LABS: Alanine Aminotransferase 10 U/L (16-63); Albumin Globulin Ratio 1.2; Albumin Level 3.4 g/dL (3.4-5.0); Alkaline Phosphatase 60 U/L (46-116); Anion Gap 14.6; Aspartate Amino Transferase 14 U/L (15-37); BUN Creatinine Ratio 20.7; Bilirubin Total 0.5 mg/dL (0.2-1.0); Calcium 8.4 mg/dL (8.5-10.1); Carbon Dioxide 25.8 mmol/L (21.0-32.0); Chloride 100 mmol/L (98-107); Estimated GFR (African America 36 (>=60 mL/min/1.73m^2); Estimated GFR (Non-African Ame 30 (>=60 mL/min/1.73m^2); Globulin 2.9 g/dL; Glucose 96 mg/dL (74-106); Potassium 3.4 mmol/L (3.5-5.1); Sodium 137 mmol/L (136-145); Total Protein 6.3 g/dL (6.4-8.2); Troponin I High Sensitivity 43.4 pg/mL (4.0-76.1)
[2024-09-18 23:31] LABS: Lactate/Lactic Acid 4.2 mmol/L (0.4-2.0)
[2024-09-19] VITALS (13 sets, daily range): BP systolic 78–118; BP diastolic 42–73; PULSE 76; O2SAT 96
[2024-09-19] MEDS: 0.9 % SODIUM CHLORIDE 1,000 ML 1000 ML IV (00:38)
[2024-09-19 00:46] LABS: Basophils Absolute Auto 0.1 10^3/uL (0.0-0.1); Basophils Percent Auto 0.3 % (0.2-2.0); Eosinophils Absolute Auto 0.6 10^3/uL (0.0-0.7); Eosinophils Percent Auto 3.6 % (0.9-7.0); Hematocrit 34.8 % (42.0-54.0); Hemoglobin 11.3 g/dL (14.0-18.0); Immature Granulocytes Pct Auto 1.3 % (0.0-0.5); Lymphocytes Percent Auto 13.1 % (20.5-60.0); Mean Corpuscular HGB Conc 32.5 g/dL (29.9-35.2); Mean Corpuscular Hemoglobin 29.3 pg (25.9-34.0); Mean Corpuscular Volume 90.2 fL (80.0-94.0); Mean Platelet Volume 9.7 fL (9.5-13.5); Monocytes Absolute Auto 1.5 10^3/uL (0.3-0.8); Monocytes Percent Auto 9.8 % (1.7-12.0); Neutrophils Percent Auto 71.9 % (43.0-75.0); Platelet Count 184 10^3/uL (150-450); Red Blood Count 3.86 10^6/uL (4.70-6.10); Red Cell Distribution Width 16.9 % (11.0-15.0); White Blood Count 15.3 10^3/uL (4.0-11.0)
[2024-09-19 01:04] LABS: Lactate/Lactic Acid 1.1 mmol/L (0.4-2.0)
== END 2024-09-19 03:32 | disposition short-term general hospital (02) ==
PROVIDERS: Emergency Provider Emergency Medicine
DX: K92.2 Gastrointestinal hemorrhage, unspecified (principal); N17.9 Acute kidney failure, unspecified; J18.9 Pneumonia, unspecified organism; Z95.1 Presence of aortocoronary bypass graft; F17.200 Nicotine dependence, unspecified, uncomplicated
CPT/HCPCS: 36415; 71045; 80053; 83605; 84484; 85007; 85025; 85027; 85610; 86850; 86900; 86901; 93005; 96361; 96374; 96375; 99285; J3490

== ENCOUNTER 2025-01-21 05:45 | Emergency (ER) | payer MEDICARE, MEDICAID, SELFPAY ==
[2025-01-21] VITALS (22 sets, daily range): BP systolic 125–153; BP diastolic 70–74; PULSE 67–80; TEMP 36.4; O2SAT 93–98; BMI 26.0
--- NOTE | 2025-01-21 06:27 | ED.FALL1 ---
HPI HPI - Fall General Chief Complaint: Fall Stated Complaint: FALL Time Seen by Provider: 01/21/25 06:12 Source: patient Mode of arrival: ambulance History of Present Illness HPI Narrative: fall at shelter. Fell onto his right side out of bed. Denies LOC. Denies nausea or dizziness. complains of neck pain. transferred via [facility] Related Data Home Medications ?Medication ?Instructions ?Recorded ?Confirmed albuterol sulfate 90 mcg/actuation 1 inh inhalation Q4H PRN shortness 04/08/24 05/09/24 aerosol inhaler of breath or wheezing escitalopram oxalate 20 mg tablet 20 mg PO DAILY 04/08/24 05/09/24 furosemide 40 mg tablet 40 mg PO DAILY 04/08/24 05/09/24 lisinopril 10 mg tablet 10 mg PO DAILY 04/08/24 05/09/24 naproxen 500 mg tablet,delayed 500 mg PO Q12H 04/08/24 04/29/24 release (EC-Naprosyn) tizanidine 4 mg capsule 4 mg PO BID PRN muscle spasticity 04/08/24 04/29/24 trazodone 100 mg tablet 100 mg PO DAILY 04/08/24 04/29/24 aspirin 81 mg tablet,delayed 81 mg PO DAILY 04/09/24 05/09/24 release (Berta Low Dose Aspirin) aripiprazole 5 mg tablet 5 mg PO .QD 04/29/24 05/09/24 lamotrigine 25 mg tablet 25 mg PO QAM 04/29/24 05/09/24 sertraline 50 mg tablet 50 mg PO QAM 04/29/24 05/09/24 Previous Rx's ?Medication ?Instructions ?Recorded gabapentin 100 mg capsule 100 mg PO BID #60 caps 05/09/24 Allergies Allergy/AdvReac Type Severity Reaction Status Date / Time nitroglycerin Allergy Unknown Unknown Verified 01/21/25 06:20 doxycycline (From Vibramycin) AdvReac Severe Confusion Verified 01/21/25 06:20 methylprednisolone (From AdvReac Severe Confusion Verified 01/21/25 06:20 Medrol) oxycodone (From OxyContin) AdvReac Severe Confusion Verified 01/21/25 06:20 procaine (From Novocain) AdvReac Severe pass out Verified 01/21/25 06:20 Opioid HPI Opioid Management Most Recent Pain and Opioid Data: Last Pain Scale 10 09/18/24, 22:18 Last ORT Total Score 6 04/28/24, 21:57 Last ORT Risk Category Moderate Risk 04/28/24, 21:57 Ur Phencyclidine Scrn, (NEGATIVE) Negative 04/08/24, 17:15 Review of Systems ROS Status of ROS 10 or more systems reviewed and unremarkable except as noted in history and below [facility] Medical History (Updated 01/21/25 @ 06:43 by Lam Schuler MD) Poor social situation ?Z60.9 - Problem related to social environment, unspecified (ICD-10) Acute exacerbation of COPD with asthma ?J44.1 - Chronic obstructive pulmonary disease with (acute) exacerbation (ICD-10) Chest wall contusion ?S20.219A - Contusion of unspecified front wall of thorax, initial encounter (ICD-10) Dehydration ?E86.0 - Dehydration (ICD-10) Frequent falls ?R29.6 - Repeated falls (ICD-10) Weakness ?R53.1 - Weakness (ICD-10) HTN (hypertension) ?I10 - Essential (primary) hypertension (ICD-10) Bipolar 1 disorder ?F31.9 - Bipolar disorder, unspecified (ICD-10) Myocardial infarct ?I21.9 - Acute myocardial infarction, unspecified (ICD-10) CHF (congestive heart failure) ?I50.9 - Heart failure, unspecified (ICD-10) COPD (chronic obstructive pulmonary disease) ?J44.9 - Chronic obstructive pulmonary disease, unspecified (ICD-10) Chronic insomnia ?F51.04 - Psychophysiologic insomnia (ICD-10) Anxiety ?F41.9 - Anxiety disorder, unspecified (ICD-10) Recurrent depression ?F33.9 - Major depressive disorder, recurrent, unspecified (ICD-10) Chronic bipolar disorder ?F31.9 - Bipolar disorder, unspecified (ICD-10) Surgical History S/P triple vessel bypass ?Z95.1 - Presence of aortocoronary bypass graft (ICD-10) Family History Other Family history of CHF (congestive heart failure) Family history of COPD (chronic obstructive pulmonary disease) Family history of cancer Family history of diabetes mellitus Family history of myocardial infarction Social History Within the past year, how often did you have a drink containing alcohol: 2-3 times a week Within the past year, how many standard drinks containing alcohol did you have on a typical day: 3 or 4 Within the past year, how often did you have six or more drinks on one occasion: weekly Total score: 5 Score interpretation: A score of 4 or more indicates drinking is likely to affect patient's safety. Smoking status: Current every day smoker Non-prescribed substance use: denies use Known occupational exposures/hazards: No Highest level of school completed/degree received: 7th grade Little interest or pleasure in doing things: not at all Feeling down, depressed, or hopeless: several days Do you think of yourself as: straight/heterosexual Gender Identity: male Exam Constitutional Vital Signs, click to edit/add: Last Vital Signs Temp 97.6 F 01/21/25 05:47 Pulse 78 01/21/25 05:47 Resp 16 01/21/25 05:47 BP 153/74 H 01/21/25 05:47 Pulse Ox 93 L 01/21/25 05:47 O2 Del Method Room Air 01/21/25 05:47 Common normals: no apparent distress, average body habitus, oriented x3, no limitations, healthy appearing, alert and well nourished [facility] Common normals: normocephalic and head/scalp atraumatic Eye Common normals: PERRL, EOMs intact bilaterally and conjunctivae normal Neck & C-Spine Other: in hard collar Respiratory Common normals: normal respiratory effort, no retractions and no use of accessory muscles Other: faint expiratory wheeze Cardio Common normals: regular rate, regular rhythm, S1 normal heart sound and S2 normal heart sound Extremity Other: right hip and femur tenderness Neuro Common normals: oriented x3, CN's II-XII intact bilaterally, moves all extremities and no focal motor deficits Psych Appearance: grossly normal Course Vital Signs Vital signs: Vital Signs Temperature 97.6 F 01/21/25 05:47 Pulse Rate 78 01/21/25 05:47 Respiratory Rate 16 01/21/25 05:47 Blood Pressure 153/74 H 01/21/25 05:47 Pulse Oximetry 93 L 01/21/25 05:47 Oxygen Delivery Method Room Air 01/21/25 05:47 Temperature 97.6 F 01/21/25 05:47 Pulse Rate 78 01/21/25 05:47 Respiratory Rate 16 01/21/25 05:47 Blood Pressure 153/74 H 01/21/25 05:47 Pulse Oximetry 93 L 01/21/25 05:47 Oxygen Delivery Method Room Air 01/21/25 05:47 MDM - Fall MDM Narrative Medical decision making narrative: patient fell out of bed at the shelter onto his right side. Struck the back of his head. Has neck pain. Arrives in C-collar. No scalp lac. Does have right hip and femur tenderness. diagnostic studies and labs ordered. Results pending at change of shift Lab Data Labs: Lab Results 01/21/25 Range/Units 05:55 WBC 7.7 (4.0-11.0) 10^3/uL RBC 3.72 L (4.70-6.10) 10^6/uL Hgb 12.6 L (14.0-18.0) g/dL Hct 35.4 L (42.0-54.0) % MCV 95.2 H (80.0-94.0) fL MCH 33.9 (25.9-34.0) pg MCHC 35.6 H (29.9-35.2) g/dL RDW 15.6 H (11.0-15.0) % Plt Count 188 (150-450) 10^3/uL MPV 10.4 (9.5-13.5) fL Neut % (Auto) 67.2 (43.0-75.0) % Lymph % (Auto) 17.0 L (20.5-60.0) % [place] % (Auto) 10.5 (1.7-12.0) % Eos % (Auto) 3.8 (0.9-7.0) % Baso % (Auto) 0.5 (0.2-2.0) % Neut # (Auto) 5.2 (1.4-6.5) 10^3/uL Lymph # (Auto) 1.3 (1.2-3.8) 10^3/uL [place] # (Auto) 0.8 (0.3-0.8) 10^3/uL Eos # (Auto) 0.3 (0.0-0.7) 10^3/uL Baso # (Auto) 0.0 (0.0-0.1) 10^3/uL Abs Immat Gran (auto) 0.08 H (0.00-0.03) 10^3/uL Imm/Tot Granulo (auto) 1.0 H (0.0-0.5) % Sodium 138 (136-145) mmol/L Potassium 3.4 L (3.5-5.1) mmol/L Chloride 101 (98-107) mmol/L Carbon Dioxide 31.4 (21.0-32.0) mmol/L Anion Gap 9.0 BUN 14.0 (7.0-18.0) mg/dL Creatinine 1.12 (0.70-1.30) mg/dL Est GFR ( Amer) >60 (>=60 mL/min/1.73m^2) Est GFR (Non-Af Amer) >60 (>=60 mL/min/1.73m^2) BUN/Creatinine Ratio 12.5 Glucose 94 (74-106) mg/dL Calcium 9.2 (8.5-10.1) mg/dL Troponin I High Sens 8.4 (4.0-76.1) pg/mL Discharge Plan Discharge Patient Disposition: Still a Patient
--- NOTE | 2025-01-21 06:30 | CT_ITS ---
The [address] [address] Patient Name: LEONIDAS MILLER MRN: [id number] date: 1945 Sex: M Assigned Patient Location: ER Current Patient Location: ER Accession/Order Number: [id number] Exam Date: 01/21/2025 06:45 Report Date: 01/21/2025 08:17 At the request of: ERIK MENENDEZ MD Procedure: CT hip RT wo con CT RIGHT HIP WITHOUT CONTRAST WITH 3-D RECONSTRUCTIONS CLINICAL DATA: Patient fell and has right hip pain. COMPARISON: Plain films 07/18/[address] the 04/08/2024 Spiral axial unenhanced images were obtained through the right hip. Coronal and 3-D volume rendered constructions were reviewed. This CT exam was performed using one or more following dose reduction techniques: Automated exposure control, adjustment of the mA and/or kV according to patient size, or use of iterative reconstruction technique. The bony structures are osteopenic. No acute fracture or dislocation is identified. A nutrient foramen is again seen at the superior aspect of the femoral neck. The hip joint space is maintained. No significant hypertrophy is seen. The remaining bony structures within the [id number] are also intact. No musculotendinous abnormalities are seen. There is no joint effusion or hematoma. There is prominent atherosclerotic disease. There is a patulous right inguinal ring containing fat. CT/CT hip RT wo con IMPRESSION: NO DEFINITE ACUTE BONY INJURY. FOLLOW-UP IS RECOMMENDED, SYMPTOMS WARRANT. Impression dictated by: Aiyana Mcdonald M.D. 01/21/2025 8:17 AM Dictation Location: [employer] Electronically authenticated by: [id number] Y Date: 01/21/2025 08:17
--- NOTE | 2025-01-21 06:30 | CT_ITS ---
The [address] [address] Patient Name: LEONIDAS MILLER MRN: [id number] date: 1945 Sex: M Assigned Patient Location: ER Current Patient Location: ER Accession/Order Number: [id number] Exam Date: 01/21/2025 06:45 Report Date: 01/21/2025 08:08 At the request of: ERIK MENENDEZ MD Procedure: CT cervical spine wo con CLINICAL DATA: Patient fell out of bed and hit the back of head. Headache and neck pain CT BRAIN WITHOUT CONTRAST: COMPARISON: 07/18/2024 TECHNIQUE: Contiguous axial unenhanced images were obtained through the brain. This CT exam was performed using one or more following dose reduction techniques: Automated exposure control, adjustment of the mA and/or kV according to patient size, or use of iterative reconstruction technique. FINDINGS: There is generalized atrophy. The ventricles are within normal limits for size and position. Chronic microvascular changes are again noted. There are no additional areas of abnormal attenuation. There is no hemorrhage, mass effect or extra-axial collections. There is suspected empty sella. The calvarium is intact. The imaged paranasal sinuses are clear. Mastoid air cells are underdeveloped. There is carotid siphon and vertebral artery plaque. CT/CT cervical spine wo con IMPRESSION: ATROPHY AND SMALL VESSEL ISCHEMIC CHANGES. NO ACUTE INTRACRANIAL TRAUMA. CT CERVICAL SPINE WITHOUT CONTRAST WITH 3D RECONSTRUCTIONS: COMPARISON: 07/26/2024 TECHNIQUE: Spiral axial unenhanced images were obtained through the cervical spine. Sagittal, coronal and 3D volume-rendered reconstructions were also reviewed. This CT exam was performed using one or more following dose reduction techniques: Automated exposure control, adjustment of the mA and/or kV according to patient size, or use of iterative reconstruction technique. FINDINGS: There is continued dextroscoliotic curvature. There is minor anterolisthesis of C7 on T1. No developing fractures are identified. There is multilevel disc space narrowing throughout with endplate sclerosis, cystic change and spurring. There is also bilateral facet disease. The atlantoaxial relationship is maintained. No prevertebral soft tissue swelling is seen. Carotid siphon and vertebral artery plaque are noted. The upper imaged lungs show minor scarring and tiny subpleural blebs. IMPRESSION: SIMILAR DEGENERATIVE CHANGES. NO ACUTE BONY INJURY. Impression dictated by: Aiyana Mcdonald M.D. 01/21/2025 8:08 AM Dictation Location: [place] [address] Electronically authenticated by: [id number] Y Date: 01/21/2025 08:08
--- NOTE | 2025-01-21 06:30 | CT_ITS ---
The [address] [address] Patient Name: LEONIDAS MILLER MRN: [id number] date: 1945 Sex: M Assigned Patient Location: ER Current Patient Location: ER Accession/Order Number: [id number] Exam Date: 01/21/2025 06:45 Report Date: 01/21/2025 08:08 At the request of: ERIK MENENDEZ MD Procedure: CT cervical spine wo con CLINICAL DATA: Patient fell out of bed and hit the back of head. Headache and neck pain CT BRAIN WITHOUT CONTRAST: COMPARISON: 07/18/2024 TECHNIQUE: Contiguous axial unenhanced images were obtained through the brain. This CT exam was performed using one or more following dose reduction techniques: Automated exposure control, adjustment of the mA and/or kV according to patient size, or use of iterative reconstruction technique. FINDINGS: There is generalized atrophy. The ventricles are within normal limits for size and position. Chronic microvascular changes are again noted. There are no additional areas of abnormal attenuation. There is no hemorrhage, mass effect or extra-axial collections. There is suspected empty sella. The calvarium is intact. The imaged paranasal sinuses are clear. Mastoid air cells are underdeveloped. There is carotid siphon and vertebral artery plaque. CT/CT head/brain wo con IMPRESSION: ATROPHY AND SMALL VESSEL ISCHEMIC CHANGES. NO ACUTE INTRACRANIAL TRAUMA. CT CERVICAL SPINE WITHOUT CONTRAST WITH 3D RECONSTRUCTIONS: COMPARISON: 07/26/2024 TECHNIQUE: Spiral axial unenhanced images were obtained through the cervical spine. Sagittal, coronal and 3D volume-rendered reconstructions were also reviewed. This CT exam was performed using one or more following dose reduction techniques: Automated exposure control, adjustment of the mA and/or kV according to patient size, or use of iterative reconstruction technique. FINDINGS: There is continued dextroscoliotic curvature. There is minor anterolisthesis of C7 on T1. No developing fractures are identified. There is multilevel disc space narrowing throughout with endplate sclerosis, cystic change and spurring. There is also bilateral facet disease. The atlantoaxial relationship is maintained. No prevertebral soft tissue swelling is seen. Carotid siphon and vertebral artery plaque are noted. The upper imaged lungs show minor scarring and tiny subpleural blebs. IMPRESSION: SIMILAR DEGENERATIVE CHANGES. NO ACUTE BONY INJURY. Impression dictated by: Aiyana Mcdonald M.D. 01/21/2025 8:08 AM Dictation Location: [place] [address] Electronically authenticated by: [id number] Y Date: 01/21/2025 08:08
--- NOTE | 2025-01-21 06:30 | XR_ITS ---
The [address] [address] Patient Name: LEONIDAS MILLER MRN: [id number] date: 1945 Sex: M Assigned Patient Location: ER Current Patient Location: ER Accession/Order Number: [id number] Exam Date: 01/21/2025 06:45 Report Date: 01/21/2025 08:19 At the request of: ERIK MENENDEZ MD Procedure: XR femur RT 2V RIGHT FEMUR - 2 views CLINICAL DATA: Right hip and leg pain following fall COMPARISON: Right hip and pelvis 07/18/2024 AP and lateral views were obtained. No acute fracture or dislocation is identified. There is prominent atherosclerotic disease. No focal soft tissue swelling is noted. XR/XR femur RT 2V IMPRESSION: NO ACUTE BONY INJURY. Impression dictated by: Aiyana Mcdonald M.D. 01/21/2025 8:19 AM Dictation Location: [place] [address] Electronically authenticated by: [id number] Y Date: 01/21/2025 08:19
[2025-01-21 06:35] LABS: Hematocrit 35.4 % (42.0-54.0); Hemoglobin 12.6 g/dL (14.0-18.0); Immature Granulocytes Abs Auto 0.08 10^3/uL (0.00-0.03); Immature Granulocytes Pct Auto 1.0 % (0.0-0.5); Lymphocytes Absolute Auto 1.3 10^3/uL (1.2-3.8); Mean Corpuscular HGB Conc 35.6 g/dL (29.9-35.2); Mean Corpuscular Hemoglobin 33.9 pg (25.9-34.0); Mean Corpuscular Volume 95.2 fL (80.0-94.0); Platelet Count 188 10^3/uL (150-450); Red Blood Count 3.72 10^6/uL (4.70-6.10); White Blood Count 7.7 10^3/uL (4.0-11.0)
[2025-01-21 06:49] LABS: Anion Gap 9.0; Blood Urea Nitrogen 14.0 mg/dL (7.0-18.0); Calcium 9.2 mg/dL (8.5-10.1); Carbon Dioxide 31.4 mmol/L (21.0-32.0); Chloride 101 mmol/L (98-107); Estimated GFR (African America >60 (>=60 mL/min/1.73m^2); Estimated GFR (Non-African Ame >60 (>=60 mL/min/1.73m^2); Glucose 94 mg/dL (74-106); Potassium 3.4 mmol/L (3.5-5.1); Sodium 138 mmol/L (136-145)
[2025-01-21 07:35] LABS: Glucose Urine UA NEGATIVE (NEGATIVE)
[2025-01-21] MEDS: ORPHENADRINE 60 MG/2 ML VIAL IV (07:41)
[2025-01-21] MEDS: KETOROLAC TROMETHAMINE 30 MG/ML VIAL 15 MG IVP (07:41)
== END 2025-01-21 11:44 | disposition home or self-care (01) ==
PROVIDERS: Emergency Medicine; Emergency Provider Internal Medicine
DX: S09.8XXA Other specified injuries of head, initial encounter (principal); S70.01XA Contusion of right hip, initial encounter; F17.200 Nicotine dependence, unspecified, uncomplicated; W06.XXXA Fall from bed, initial encounter
CPT/HCPCS: 36415; 70450; 72125; 73552; 73700; 76376; 80048; 81003; 84484; 85025; 96374; 96375; 99285; J1885; J2360